=== PATIENT | female | born 1970 | race Hispanic/Latino ===

== ENCOUNTER 2017-04-26 09:52 | Emergency (ER) | payer SELFPAY ==
--- NOTE | 2017-04-26 10:36 | EDPHYS ---
Physician Documentation [facility] Name: Kerry Brush Age: 46 yrs Sex: Female : 1970 Arrival Date: 04/26/2017 Time: 09:55 Bed 7 Private MD: ED Physician Aleksandr Cheng HPI: 04/26 10:07 This 46 yrs old Female presents to ER via Ambulatory with complaints of Sore rn Throat, Ear Pain. 10:07 The patient presents with sore throat. The patient describes throat pain as raw. Onset: rn The symptoms/episode began/occurred yesterday. Severity of symptoms: At their worst the symptoms were mild, in the emergency department the symptoms are unchanged. Modifying factors: The symptoms are alleviated by nothing, the symptoms are aggravated by swallowing. 10:15 The patient has experienced similar episodes in the past. Reports had grandchildren rn over this weekend, woke up yesterday with sore throat, bilateral ear pain, congestion, no fever. . 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 - Social history:: Smoking status: Patient/guardian denies using tobacco. - Family history:: not pertinent. - Hospitalizations: : No recent hospitalization is reported. ROS: 10:15 Constitutional: Negative for fever, chills, and weight loss, Eyes: Negative for injury, rn pain, redness, and discharge, ENT: + sore throat Neck: Negative for injury, and swelling, Cardiovascular: Negative for chest pain, palpitations, and edema, Respiratory: Negative for shortness of breath, cough, wheezing, and pleuritic chest pain, Abdomen/GI: Negative for abdominal pain, nausea, vomiting, diarrhea, and constipation, MS/Extremity: Negative for injury and deformity, Skin: Negative for injury, rash, and discoloration, Neuro: Negative for headache, weakness, numbness, tingling, and seizure. Exam: 10:15 Constitutional: This is a well developed, well nourished patient who is awake, alert, rn and in no acute distress. Head/Face: Normocephalic, atraumatic. Eyes: Pupils equal round and reactive to light, extra-ocular motions intact. Lids and lashes normal. Conjunctiva and sclera are non-icteric and not injected. Cornea within normal limits. Periorbital areas with no swelling, redness, or edema. 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 2 in. (157.48 cm); Pain 8/10; 10:40 BP 132 / 81; Pulse 88; Resp 16 S; Pulse Ox 100% on R/A; Pain 8/10; jtb 09:59 Body Mass Index 36.58 (90.72 kg, 157.48 cm) hb MDM: 10:01 Patient medically screened. rn 10:34 Differential diagnosis: group A strep tonsillitis, influenza, laryngitis, pharyngitis, rn tonsillitis, upper respiratory infection, viral syndrome. Data reviewed: vital signs, nurses notes, lab test result(s), and as a result, I will discharge patient. Counseling: I had a detailed discussion with the patient and/or guardian regarding: the historical points, exam findings, and any diagnostic results supporting the discharge/admit diagnosis, lab results, the need for outpatient follow up, to return to the emergency department if symptoms worsen or persist or if there are any questions or concerns that arise at home. Special discussion: I discussed with the patient/guardian in detail that at this point there is no indication for admission to the hospital. It is understood, however, that if the symptoms persist or worsen the patient needs to return immediately for re-evaluation. 04/26 10:06 Order name: Strep rn 04/26 10:06 Order name: Flu rn 04/26 10:33 Order name: Group A Streptococcus Rapid Sc; Complete Time: 10:34 EDMS 04/26 10:33 Order name: Influenza Screen (A ; Complete Time: 10:34 EDMS Administered Medications: No medications were administered Disposition: 04/26/17 10:35 Discharged to Home. Impression: Acute upper respiratory infection, unspecified. - Condition is Stable. - Discharge Instructions: Upper Respiratory Infection, Adult, Viral Infections. - Medication Reconciliation Form, Thank You Letter, Antibiotic Education, Prescription Opioid Use form. - Follow up: Private Physician; When: As needed; Reason: Recheck today's complaints, Re-evaluation by your physician. - Problem is new. - Symptoms have improved. Signatures: Dispatcher [employer] EDAleksandr Otto MD MD rn Baxter, Heather, RN RN hb Bryson, James jtb
--- NOTE | 2017-04-26 10:36 | ER ---
Nurse's Notes [facility] Name: Kerry Brush Age: 46 yrs Sex: Female : 1970 Arrival Date: 04/26/2017 Time: 09:55 Bed 7 Private MD: Diagnosis: Acute upper respiratory infection, unspecified Presentation: 04/26 09:57 Presenting complaint: Patient states: Sore throat and bilateral ear pain x 2 days. hb Denies fever. Transition of care: patient was not received from another setting of care. Onset of symptoms was April 25, 2017. Care prior to arrival: None. 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 - Social history:: Smoking status: Patient/guardian denies using tobacco. - Family history:: not pertinent. - Hospitalizations: : No recent hospitalization is reported. Screenin:05 Abuse screen: Denies threats or abuse. Denies injuries from another. Nutritional jtb screening: No deficits noted. Tuberculosis screening: No symptoms or risk factors identified. Fall Risk None identified. Assessment: 10:05 General: Appears in no apparent distress. uncomfortable, Behavior is calm, cooperative, jtb appropriate for age. Pain: Complains of pain in right ear and left ear and soar throat. Pain does not radiate. Pain currently is 8 out of 10 on a pain scale. at worst was 9 out of 10 on a pain scale. Neuro: Level of Consciousness is awake, alert, obeys commands, Oriented to person, place, time, situation. Cardiovascular: Heart tones S1 S2 present Patient's skin is warm and dry. Respiratory: Airway is patent Respiratory effort is even, unlabored, Respiratory pattern is regular, symmetrical, Breath sounds are clear bilaterally. GI: No signs and/or symptoms were reported involving the gastrointestinal system. Patient currently denies nausea, vomiting. : No signs and/or symptoms were reported regarding the genitourinary system. EENT: Throat is clear is pink. Derm: Skin is intact, Skin is dry, Skin is normal, Skin temperature is warm. Musculoskeletal: No signs and/or symptoms reported regarding the musculoskeletal system. 10:40 Reassessment: Patient appears in no apparent distress at this time. No changes from jtb previously documented assessment. Patient and/or family updated on plan of care and expected duration. Pain level reassessed. Patient is alert, oriented x 3, equal unlabored respirations, skin warm/dry/pink. Provider at the bedside. Vital Signs: 09:59 BP 145 / 81; Pulse 99; Resp 16; Temp 98.9; Pulse Ox 100% on R/A; Weight 90.72 kg; hb Height 5 ft. 2 in. (157.48 cm); Pain 8/10; 10:40 BP 132 / 81; Pulse 88; Resp 16 S; Pulse Ox 100% on R/A; Pain 8/10; jtb 09:59 Body Mass Index 36.58 (90.72 kg, 157.48 cm) hb ED Course: 09:55 Patient arrived in ED. as 09:58 Aleksandr Cheng MD is Attending Physician. rn 09:58 Triage completed. hb 09:59 Arm band placed on right wrist. hb 10:01 Tess Good RN is Primary Nurse. jl7 10:05 Patient has correct armband on for positive identification. Bed in low position. Call jtb light in reach. Side rails up X 1. Pulse ox on. NIBP on. 10:58 No provider procedures requiring assistance completed. Patient did not have IV access jtb during this emergency room visit. Administered Medications: No medications were administered Outcome: 10:35 Discharge ordered by . rn 10:58 Discharged to home ambulatory. jtb 10:58 Condition: stable 10:58 Discharge instructions given to patient, Instructed on discharge instructions, follow up and referral plans. Demonstrated understanding of instructions, follow-up care. 10:59 Patient left the ED. jtb 11:58 Attestation : I agree with everything documented by Warren García, Student Nurse. jl7 Signatures: Sherry Pino as Aleksandr Cheng MD MD rn Baxter, Heather, RN RN Tess Good RN RN jl7 Warren García
[2017-04-26 11:03] VITALS: TEMP 98.9; O2SAT 100
[2017-04-26 11:04] VITALS: BP 132/81
== END 2017-04-26 10:59 | disposition home or self-care (01) ==
LOC: ER 09:52
DX: J06.9 Acute upper respiratory infection, unspecified (principal)
CPT/HCPCS: 87070; 87081; 87804; 99283

== ENCOUNTER 2018-08-02 21:33 | Emergency (ER) | payer SELFPAY ==
[2018-08-02] MEDS ORDERED: HYDROCODONE/CHLORPHEN 5 ML/OSYR ONE (22:35)
--- NOTE | 2018-08-02 23:00 | ER ---
Nurse's Notes [facility] Name: Kerry Brush Age: 48 yrs Sex: Female : 1970 Arrival Date: 08/02/2018 Time: 21:41 Bed 25 [facility] MD: Diagnosis: Cough;Acute laryngitis;Viral sinusitis Presentation: 08/02 21:44 Presenting complaint: Patient states: Sore throat and hoarse voice for 6 days. Care aj prior to arrival: None. 21:44 Acuity: JAVON 4 aj 21:44 Method Of Arrival: Ambulatory aj 22:03 Transition of care: patient was not received from another setting of care. Onset of cc3 symptoms was August 02, 2018. Risk Assessment: Do you want to hurt yourself or someone else? Patient reports no desire to harm self or others. Initial Sepsis Screen: Does the patient meet any 2 criteria? No. Patient's initial sepsis screen is negative. Does the patient have a suspected source of infection? No. Patient's initial sepsis screen is negative. Triage Assessment: 21:44 General: Appears in no apparent distress. comfortable, Behavior is calm, cooperative, aj appropriate for age. Pain: Denies pain. EENT: Reports pain when swallowing. Respiratory: Airway is patent Respiratory effort is even, unlabored, Respiratory pattern is regular, symmetrical. 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 - Ebola Screening: : Patient negative for fever greater than or equal to 101.5 degrees Fahrenheit, and additional compatible Ebola Virus Disease symptoms Patient denies exposure to infectious person Patient denies travel to an Ebola-affected area in the 21 days before illness onset No symptoms or risks identified at this time. - Family history:: not pertinent. - Social history:: Smoking status: Patient/guardian denies using tobacco, never smoked. - Hospitalizations: : No recent hospitalization is reported. Screenin:03 Abuse screen: Denies threats or abuse. Denies injuries from another. Nutritional cc3 screening: No deficits noted. Tuberculosis screening: No symptoms or risk factors identified. Fall Risk Ambulatory Aid- None/Bed Rest/Nurse Assist (0 pts). Gait- Normal/Bed Rest/Wheelchair (0 pts) Mental Status- Oriented to own ability (0 pts). Assessment: 22:03 General: Appears in no apparent distress. comfortable, Behavior is calm, cooperative, cc3 appropriate for age. Pain: Denies pain. Neuro: Level of Consciousness is awake, alert, obeys commands, Oriented to person, place, time, situation, Appropriate for age. Cardiovascular: Denies chest pain, Patient's skin is warm and dry. Respiratory: Airway is patent Respiratory effort is even, unlabored, Respiratory pattern is regular, symmetrical, Breath sounds are clear bilaterally. GI: Abdomen is round non-distended. : No signs and/or symptoms were reported regarding the genitourinary system. EENT: Throat bilaterally with gag reflex present. Derm: Skin is intact, is healthy with good turgor, Skin is pink, warm \T\ dry. normal. Musculoskeletal: Circulation, motion, and sensation intact. Range of motion: intact in all extremities. 23:05 Reassessment: Patient appears in no apparent distress at this time. Patient and/or cc3 family updated on plan of care and expected duration. Pain level reassessed. Patient is alert, oriented x 3, equal unlabored respirations, skin warm/dry/pink. Dr. Cheng discharged the patient home with prescription given. No IV cannula in situ. Patient left ER vitally stable and ambulatory with her family. No valuables left bedside. Patient denies pain at this time. Patient states feeling better. Patient states symptoms have improved. Vital Signs: 21:44 BP 155 / 69; Pulse 99; Resp 16; Temp 98.2; Pulse Ox 98% on R/A; Weight 90.72 kg; Height aj 5 ft. 1 in. (154.94 cm); 22:55 BP 123 / 70; Pulse 91; Resp 18 S; Temp 98.6(O); Pulse Ox 99% on R/A; cc3 21:44 Body Mass Index 37.79 (90.72 kg, 154.94 cm) aj ED Course: 21:41 Patient arrived in ED. es 21:44 Triage completed. aj 21:44 Arm band placed on left wrist. Patient placed in waiting room, Patient notified of wait aj time. 22:03 Bisi Frausto is Primary Nurse. cc3 22:03 Patient has correct armband on for positive identification. Bed in low position. Call cc3 light in reach. Side rails up X 1. Pulse ox on. NIBP on. 22:04 Aleksandr Cheng MD is Attending Physician. rn 23:05 No provider procedures requiring assistance completed. Patient did not have IV access cc3 during this emergency room visit. Administered Medications: 22:25 Drug: Tussionex Pennkinetic ER 5 ml Route: PO; cc3 22:45 Follow up: Response: No adverse reaction cc3 Outcome: 22:59 Discharge ordered by MD. rn 23:05 Discharged to home ambulatory, with family. cc3 23:05 Condition: stable 23:05 Discharge instructions given to patient, Instructed on discharge instructions, follow up and referral plans. medication usage, Demonstrated understanding of instructions, follow-up care, medications, Prescriptions given X 1. 23:10 Patient left the ED. cc3 Signatures: Jane Villegas, RN Esperanza Eckert Roman, MD MD rn Cordel, Charlene cc3
--- NOTE | 2018-08-02 23:00 | EDPHYS ---
Physician Documentation [facility] Name: Kerry Brush Age: 48 yrs Sex: Female : 1970 Arrival Date: 08/02/2018 Time: 21:41 Bed 25 Private MD: ED Physician Aleksandr Cheng HPI: 08/02 22:12 This 48 yrs old Female presents to ER via Ambulatory with complaints of Sore rn Throat. 22:12 The patient presents with sore throat. The patient describes throat pain as dry, raw. rn Onset: The symptoms/episode began/occurred 6 day(s) ago. Severity of symptoms: At their worst the symptoms were mild, in the emergency department the symptoms are unchanged. Modifying factors: The symptoms are alleviated by nothing, the symptoms are aggravated by swallowing, cough. The patient has experienced similar episodes in the past. Reports has chronic "sinus problems", doesn't take daily allergy medication, now having 6 days of sore throat, ear fullness, runny nose, cough with phlegm. No chest pain. Non-smoker. . 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 - Ebola Screening: : Patient negative for fever greater than or equal to 101.5 degrees Fahrenheit, and additional compatible Ebola Virus Disease symptoms Patient denies exposure to infectious person Patient denies travel to an Ebola-affected area in the 21 days before illness onset No symptoms or risks identified at this time. - Family history:: not pertinent. - Social history:: Smoking status: Patient/guardian denies using tobacco, never smoked. - Hospitalizations: : No recent hospitalization is reported. ROS: 22:12 Constitutional: Negative for fever, chills, and weight loss, Eyes: Negative for injury, rn pain, redness, and discharge, ENT: + nasal and ear congestion, + sore throat Neck: Negative for injury, pain, and swelling, Cardiovascular: Negative for chest pain, palpitations, and edema, Respiratory: + cough Abdomen/GI: Negative for abdominal pain, nausea, vomiting, diarrhea, and constipation, MS/Extremity: Negative for injury and deformity, Skin: Negative for injury, rash, and discoloration, Neuro: Negative for headache, weakness, numbness, tingling, and seizure. Exam: 22:12 Constitutional: This is a well developed, well nourished patient who is awake, alert, rn and in no acute distress. Head/Face: Normocephalic, atraumatic. Eyes: Pupils equal round and reactive to light, extra-ocular motions intact. Lids and lashes normal. Conjunctiva and sclera are non-icteric and not injected. Cornea within normal limits. Periorbital areas with no swelling, redness, or edema. ENT: No oral swelling, no stridor, uvula midline Neck: Trachea midline, + mild tender anterior cervical LAD Respiratory: No increased work of breathing, no retractions or nasal flaring. Speaking full sentences Skin: Warm, dry with normal turgor. Normal color with no rashes, no lesions, and no evidence of cellulitis. MS/ Extremity: Pulses equal, no cyanosis. Neurovascular intact. Full, normal range of motion. Equal circumference. Neuro: Awake and alert, GCS 15, oriented to person, place, time, and situation. Cranial nerves II-XII grossly intact. Motor strength 5/5 in all extremities. Sensory grossly intact. Cerebellar exam normal. Normal gait. Vital Signs: 21:44 BP 155 / 69; Pulse 99; Resp 16; Temp 98.2; Pulse Ox 98% on R/A; Weight 90.72 kg; Height aj 5 ft. 1 in. (154.94 cm); 22:55 BP 123 / 70; Pulse 91; Resp 18 S; Temp 98.6(O); Pulse Ox 99% on R/A; cc3 21:44 Body Mass Index 37.79 (90.72 kg, 154.94 cm) aj MDM: 22:04 Patient medically screened. rn 22:57 Differential diagnosis: group A strep tonsillitis, pharyngitis, uvulitis, viral rn syndrome. Data reviewed: vital signs, nurses notes, lab test result(s), and as a result, I will discharge patient. Counseling: I had a detailed discussion with the patient and/or guardian regarding: the historical points, exam findings, and any diagnostic results supporting the discharge/admit diagnosis, lab results, the need for outpatient follow up, to return to the emergency department if symptoms worsen or persist or if there are any questions or concerns that arise at home. Special discussion: I discussed with the patient/guardian in detail that at this point there is no indication for admission to the hospital. It is understood, however, that if the symptoms persist or worsen the patient needs to return immediately for re-evaluation. ED course: Most likely viral syndrome, strep neg, will dc with cough medication, and recommend pcp f/u if continues or worsens.. 08/02 22:38 Order name: Throat Culture EDMT 08/02 22:43 Order name: Group A Streptococcus Rapid Sc; Complete Time: 22:57 EDMT Administered Medications: 22:25 Drug: Tussionex Pennkinetic ER 5 ml Route: PO; cc3 22:45 Follow up: Response: No adverse reaction cc3 Disposition: 08/02/18 22:59 Discharged to Home. Impression: Cough, Acute laryngitis, Viral sinusitis. - Condition is Stable. - Discharge Instructions: Laryngitis, Viral Respiratory Infection, Cough, Adult. - Prescriptions for Guaifenesin AC 10- 100 mg/5 mL Oral Liquid - take 10 milliliter by ORAL route every 4 hours As needed; 240 milliliter. - Medication Reconciliation Form, Thank You Letter, Antibiotic Education, Prescription Opioid Use form. - Follow up: Private Physician; When: As needed; Reason: Recheck today's complaints, Re-evaluation by your physician. - Problem is an ongoing problem. - Symptoms have improved. Signatures: Dispatcher [employer] [facility] Jane Villegas RN Aleksandr Merlos MD MD rn Cordel, Charlene cc3 Corrections: (The following items were deleted from the chart) 22:56 22:43 Group A Streptococcus Rapid [id number] ordered. [facility] 23:00 22:59 08/02/2018 22:59 Discharged to Home. Impression: Cough; Acute laryngitis. rn Condition is Stable. Forms are Medication Reconciliation Form, Thank You Letter, Antibiotic Education, Prescription Opioid Use. Follow up: Private Physician; When: As needed; Reason: Recheck today's complaints, Re-evaluation by your physician. Problem is an ongoing problem. Symptoms have improved. rn 23:10 23:00 08/02/2018 22:59 Discharged to Home. Impression: Cough; Acute laryngitis; Viral cc3 sinusitis. Condition is Stable. Forms are Medication Reconciliation Form, Thank You Letter, Antibiotic Education, Prescription Opioid Use. Follow up: Private Physician; When: As needed; Reason: Recheck today's complaints, Re-evaluation by your physician. Problem is an ongoing problem. Symptoms have improved. rn
[2018-08-03 01:52] VITALS: BP 123/70; TEMP 98.6; O2SAT 99
== END 2018-08-02 23:10 | disposition home or self-care (01) ==
LOC: ER 21:33
DX: J04.0 Acute laryngitis (principal); J32.8 Other chronic sinusitis; B97.89 Other viral agents as the cause of diseases classified elsewhere; R05 Cough
CPT/HCPCS: 87070; 87081; 99283

== ENCOUNTER 2019-02-27 17:09 | Emergency (ER) | payer SELFPAY ==
--- NOTE | 2019-02-27 18:04 | EDPHYS ---
Physician Documentation [facility] Name: Kerry Brush Age: 48 yrs Sex: Female : 1970 Arrival Date: 02/27/2019 Time: 17:12 Bed 17 Private MD: ED Physician Aleksandr Cheng HPI: 02/27 19:30 This 48 yrs old Female presents to ER via Ambulatory with complaints of snw Breathing Difficulty, Fever, Sore Throat, Headache. 19:30 The patient or guardian reports cough, flu symptoms, arthralgias, low-grade fever, snw myalgias, no appetite, hoarse voice. Onset: The symptoms/episode began/occurred suddenly, last night. Modifying factors: The symptoms are alleviated by nothing. Associated signs and symptoms: Pertinent positives: fever, sore throat, cough. Severity of symptoms: At their worst the symptoms were moderate in the emergency department the symptoms are unchanged. The patient has not experienced similar symptoms in the past, but family has similar symptoms, father. The patient has not recently seen a physician. 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 - Social history:: Smoking status: Patient denies any tobacco usage or history of. - Ebola Screening: : Patient negative for fever greater than or equal to 101.5 degrees Fahrenheit, and additional compatible Ebola Virus Disease symptoms Patient denies exposure to infectious person Patient denies travel to an Ebola-affected area in the 21 days before illness onset No symptoms or risks identified at this time. ROS: 19:29 Eyes: Negative for injury, pain, redness, and discharge, ENT: Negative for injury, snw pain, and discharge, Neck: Negative for injury, pain, and swelling, Cardiovascular: Negative for chest pain, palpitations, and edema. 19:29 Abdomen/GI: Negative for abdominal pain, nausea, vomiting, diarrhea, and constipation, Back: Negative for injury and pain, : Negative for injury, bleeding, discharge, and swelling, MS/Extremity: Negative for injury and deformity, Skin: Negative for injury, rash, and discoloration, Neuro: Negative for headache, weakness, numbness, tingling, and seizure. 19:29 Constitutional: Positive for body aches, chills, fatigue, fever, malaise. 19:29 Respiratory: Positive for cough, with no reported sputum. Exam: 19:28 Head/Face: Normocephalic, atraumatic. Eyes: Pupils equal round and reactive to light, snw extra-ocular motions intact. Lids and lashes normal. Conjunctiva and sclera are non-icteric and not injected. Cornea within normal limits. Periorbital areas with no swelling, redness, or edema. Neck: Trachea midline, no thyromegaly or masses palpated, and no cervical lymphadenopathy. Supple, full range of motion without nuchal rigidity, or vertebral point tenderness. No Meningismus. Chest/axilla: Normal chest wall appearance and motion. Nontender with no deformity. No lesions are appreciated. Cardiovascular: Regular rate and rhythm with a normal S1 and S2. No gallops, murmurs, or rubs. Normal PMI, no JVD. No pulse deficits. Abdomen/GI: Soft, non-tender, with normal bowel sounds. No distension or tympany. No guarding or rebound. No evidence of tenderness throughout. Back: No spinal tenderness. No costovertebral tenderness. Full range of motion. Skin: Warm, dry with normal turgor. Normal color with no rashes, no lesions, and no evidence of cellulitis. MS/ Extremity: Pulses equal, no cyanosis. Neurovascular intact. Full, normal range of motion. Neuro: Awake and alert, GCS 15, oriented to person, place, time, and situation. Cranial nerves II-XII grossly intact. Motor strength 5/5 in all extremities. Sensory grossly intact. Cerebellar exam normal. Normal gait. Psych: Awake, alert, with orientation to person, place and time. Behavior, mood, and affect are within normal limits. 19:28 Constitutional: The patient appears alert, awake, frail, uncomfortable. 19:28 Respiratory: the patient does not display signs of respiratory distress, Respirations: normal, Breath sounds: + upper airway congestion. bronchitic cough. Vital Signs: 17:27 BP 135 / 82; Pulse 88; Resp 16; Temp 99; Pulse Ox 96% ; Weight 90.72 kg; Height 5 ft. 1 sv in. (154.94 cm); 18:30 BP 131 / 76; Pulse 81; Resp 17 S; Pulse Ox 96% on R/A; ca1 17:27 Body Mass Index 37.79 (90.72 kg, 154.94 cm) sv MDM: 17:43 Patient medically screened. snw 19:27 Data reviewed: vital signs, nurses notes. Data interpreted: Pulse oximetry: on room air snw is 96 %. Interpretation: acceptable. Counseling: I had a detailed discussion with the patient and/or guardian regarding: the historical points, exam findings, and any diagnostic results supporting the discharge/admit diagnosis, the need for outpatient follow up, to return to the emergency department if symptoms worsen or persist or if there are any questions or concerns that arise at home. Special discussion: I have referred the patient to see his PCP for further evaluation of high blood pressure. Based on the history and exam findings, there is no indication for further emergent testing or inpatient evaluation. I discussed with the patient/guardian the need to see the primary care provider for further evaluation of the symptoms. Administered Medications: 18:25 Drug: Tussionex Pennkinetic ER 5 ml Route: PO; sg 18:29 Follow up: Response: Medication administered at discharge. ca1 18:25 Drug: Phenergan 25 mg Route: PO; sg 18:29 Follow up: Response: Medication administered at discharge. ca1 Disposition: 02/28 16:32 Co-signature as Attending Physician, Aleksandr Cheng MD. rn Disposition: 02/27/19 18:04 Discharged to Home. Impression: Influenza due to unidentified influenza virus. - Condition is Stable. - Discharge Instructions: Fever, Adult, Influenza, Adult, Cough, Adult, Rehydration, Adult. - Prescriptions for promethazine 25 mg Oral Tablet - take 1 tablet by ORAL route every 6 hours As needed; 20 tablet. Tamiflu 75 mg Oral Capsule - take 1 tablet by ORAL route every 12 hours for 5 days; 10 tablet. - Work release form, Medication Reconciliation Form, Thank You Letter, Antibiotic Education, Prescription Opioid Use form. - Follow up: Private Physician; When: 2 - 3 days; Reason: Recheck today's complaints, Continuance of care, Re-evaluation by your physician. Follow up: Emergency Department; When: As needed; Reason: Worsening of condition. Signatures: Lenora Post RN RN sv Hubert Marte RN RN sg Deborah Cano, EXPORT COORDINATOR-C EXPORT COORDINATOR-Csnw Aleksandr Cheng MD MD rn Acob, Diann RN RN ca1 Corrections: (The following items were deleted from the chart) 02/27 18:38 18:04 02/27/2019 18:04 Discharged to Home. Impression: Influenza due to unidentified ca1 influenza virus. Condition is Stable. Forms are Medication Reconciliation Form, Thank You Letter, Antibiotic Education, Prescription Opioid Use. Follow up: Private Physician; When: 2 - 3 days; Reason: Recheck today's complaints, Continuance of care, Re-evaluation by your physician. Follow up: Emergency Department; When: As needed; Reason: Worsening of condition. snw
--- NOTE | 2019-02-27 18:04 | ER ---
Nurse's Notes [facility] Name: Kerry Brush Age: 48 yrs Sex: Female : 1970 Arrival Date: 02/27/2019 Time: 17:12 Bed 17 Private MD: Diagnosis: Influenza due to unidentified influenza virus Presentation: 02/27 17:25 Presenting complaint: Patient states: sore throat started Tuesday and then started sv having dyspnea, fever Tmax 100, body aches started the next day. Transition of care: patient was not received from another setting of care. Onset of symptoms was February 25, 2019. Care prior to arrival: Medication(s) given: Theraflu and Ibuprofen taken this morning around 0830. 17:25 Method Of Arrival: Ambulatory sv 17:25 Acuity: JAVON 3 sv 17:40 Initial Sepsis Screen: Does the patient meet any 2 criteria? Yes Does the patient have ca1 a suspected source of infection? No. Patient's initial sepsis screen is negative. 17:40 Risk Assessment: Do you want to hurt yourself or someone else? Patient reports no ca1 desire to harm self or others. Triage Assessment: 18:37 Respiratory: Reports Onset: The symptoms/episode began/occurred the patient has mild ca1 shortness of breath. 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 - Social history:: Smoking status: Patient denies any tobacco usage or history of. - Ebola Screening: : Patient negative for fever greater than or equal to 101.5 degrees Fahrenheit, and additional compatible Ebola Virus Disease symptoms Patient denies exposure to infectious person Patient denies travel to an Ebola-affected area in the 21 days before illness onset No symptoms or risks identified at this time. Screenin:40 Abuse screen: Denies threats or abuse. Denies injuries from another. Nutritional ca1 screening: No deficits noted. Tuberculosis screening: No symptoms or risk factors identified. 17:40 Fall Risk None identified. ca1 Assessment: 17:40 General: Appears in no apparent distress. comfortable, Behavior is calm, cooperative, ca1 appropriate for age. Pain: Complains of pain in throat Pain began 2-3 days ago. Neuro: Level of Consciousness is awake, alert, obeys commands, Oriented to person, place, time, situation, Appropriate for age. Cardiovascular: Heart tones S1 S2 present Capillary refill < 3 seconds Patient's skin is warm and dry. Rhythm is regular. Respiratory: Reports cough that is Airway is compromised Respiratory effort is even, unlabored, Respiratory pattern is regular, symmetrical, Breath sounds are clear bilaterally. GI: Abdomen is round non-distended, Bowel sounds present X 4 quads. Abd is soft and non tender X 4 quads. : No deficits noted. No signs and/or symptoms were reported regarding the genitourinary system. EENT: Reports nasal congestion nasal discharge that is watery. Derm: Skin is intact, is healthy with good turgor, Skin is pink, warm \T\ dry. Musculoskeletal: Circulation, motion, and sensation intact. Capillary refill < 3 seconds. 18:30 Reassessment: Patient appears in no apparent distress at this time. Patient is alert, ca1 oriented x 3, equal unlabored respirations, skin warm/dry/pink. Vital Signs: 17:27 BP 135 / 82; Pulse 88; Resp 16; Temp 99; Pulse Ox 96% ; Weight 90.72 kg; Height 5 ft. 1 sv in. (154.94 cm); 18:30 BP 131 / 76; Pulse 81; Resp 17 S; Pulse Ox 96% on R/A; ca1 17:27 Body Mass Index 37.79 (90.72 kg, 154.94 cm) sv ED Course: 17:12 Patient arrived in ED. mr 17:25 Arm band placed on. sv 17:27 Triage completed. sv 17:28 Hubert Marte, RN is Primary Nurse. sg 17:34 Deborah [facility]C [facility]. snw 17:34 Aleksandr Cheng MD is Attending Physician. snw 17:40 Patient has correct armband on for positive identification. Bed in low position. Call ca1 light in reach. Side rails up X 1. Pulse ox on. NIBP on. 18:31 No provider procedures requiring assistance completed. Patient did not have IV access ca1 during this emergency room visit. Administered Medications: 18:25 Drug: Tussionex Pennkinetic ER 5 ml Route: PO; sg 18:29 Follow up: Response: Medication administered at discharge. ca1 18:25 Drug: Phenergan 25 mg Route: PO; sg 18:29 Follow up: Response: Medication administered at discharge. ca1 Outcome: 18:04 Discharge ordered by . steve 18:31 Discharged to home ambulatory, with family. ca1 18:31 Condition: stable 18:31 Discharge instructions given to patient, Instructed on discharge instructions, follow up and referral plans. medication usage, Demonstrated understanding of instructions, follow-up care, medications, Prescriptions given X 2. 18:38 Patient left the ED. ca1 Signatures: Lneora Post, RN RN Hubert Rivas RN RN sg Deborah Cano, ASSEMBLER PRODUCT-C ASSEMBLER PRODUCT-Csnw Jason Diann Oden RN RN ca1
[2019-02-27] MEDS ORDERED: HYDROCODONE/CHLORPHEN 5 ML/OSYR ONE (18:23)
[2019-02-27] MEDS ORDERED: PROMETHAZINE 25 MG TABLET ONE (18:23)
[2019-02-28 04:23] VITALS: BP 135/82; TEMP 99; O2SAT 96
== END 2019-02-27 18:38 | disposition home or self-care (01) ==
LOC: ER 17:09
DX: J11.89 Influenza due to unidentified influenza virus with other manifestations (principal)
CPT/HCPCS: 99283; Q0169

== ENCOUNTER 2020-03-10 11:34 | Observation (INO) | payer BC, SELFPAY ==
--- NOTE | 2020-03-10 13:27 | RAD REPORT ---
EXAM DESCRIPTION: RADChest Pa And Lat (2 Views)03/10/2020 1:21 pm CLINICAL HISTORY: Cough COMPARISON: None FINDINGS: Moderate bilateral pulmonary opacities. . The heart is normal size IMPRESSION: Moderate bilateral pulmonary opacities likely pneumonia
[2020-03-10 16:55] LABS: Absolute Lymphocytes (CBC) 1.4 K/uL (0.7-4.9); Basophils % 0.2 % (0-1.3); Hematocrit 29.8 % (36.0-45.0); Lymphocytes % 21.8 % (15.3-44.8); MPV 7.8 fL (7.6-11.3); RBC Red Blood Cell Count 3.79 M/uL (3.86-4.86)
[2020-03-10 16:58] LABS: Protime INR 1.08
[2020-03-10] MEDS ORDERED: NA CHLORIDE 0.9% 50 ML ONE (17:04)
[2020-03-10] MEDS ORDERED: dexAMETHasone 10 MG/ML VIAL ONE (17:04)
[2020-03-10 17:20] LABS: ALT/SGPT 91 U/L (12-78); AST/SGOT 65 U/L (15-37); Albumin 3.5 g/dL (3.4-5.0); Alkaline Phosphatase 118 U/L (45-117); BUN Blood Urea Nitrogen 9 mg/dL (7-18); Bicarbonate 26 mmol/L (21-32); Bilirubin Direct 0.1 mg/dL (0-0.2); Bilirubin Total 0.3 mg/dL (0.2-1.0); Glucose Level 91 mg/dL (74-106); Lipase 108 U/L (73-393); Potassium 3.2 mmol/L (3.5-5.1); Protein, Total 8.6 g/dL (6.4-8.2); Sodium Level 135 mmol/L (136-145); Troponin (Emerg Dept Use Only) < 0.02 ng/mL (0.0-0.045)
--- NOTE | 2020-03-10 18:38 | RAD REPORT ---
EXAM DESCRIPTION: CT - Chest For Pe Angio - 03/10/2020 6:03 pm CLINICAL HISTORY: SOB, COVID positive March 05, shortness of breath, chest pain COMPARISON: Chest Pa And Lat (2 Views) dated 03/10/2020 TECHNIQUE: Dynamically enhanced 3 mm thick images of the chest were obtained during administration o f approximately 150mL Isovue 370 IV contrast. Coronal and oblique MIP reconstruction images were gene rated and reviewed. Exam utilizes a protocol to evaluate the pulmonary arterial tree. All CT scans are performed using dose optimization technique as appropriate and may include automated exposure control or mA/KV adjustment according to patient size. FINDINGS: No pulmonary emboli are identified. The aorta as imaged shows no acute or suspicious finding. No pericardial thickening or effusion. Peripheral ground-glass opacification present in the lung pritchett with interstitial thickening. No end obronchial lesion. No mass or cavitation seen. No pleural effusion or pleural thickening. No mediastinal or hilar suspicious masses. No chest wall masses or abnormal axillary lymphadenopathy. IMPRESSION: No pulmonary emboli identified. Mild to moderate bilateral COVID-19 pneumonia.
--- NOTE | 2020-03-10 18:54 | EDPHYS ---
Physician Documentation [facility] Name: Kerry Brush Age: 49 yrs Sex: Female : 1970 Arrival Date: 03/10/2020 Time: 11:34 Bed 15 Private MD: ED Physician Lianne Martinez HPI: 03/10 19:01 This 49 yrs old Female presents to ER via Ambulatory with complaints of Cough, kb Shortness Of Breath, COVID+. 19:01 The patient or guardian reports cough, difficulty breathing, flu symptoms, low-grade kb fever, myalgias. Onset: The symptoms/episode began/occurred 7 day(s) ago. Severity of symptoms: At their worst the symptoms were moderate, in the emergency department the symptoms are unchanged. Modifying factors: The symptoms are alleviated by nothing, the symptoms are aggravated by exertion. Associated signs and symptoms: The patient has no apparent associated signs or symptoms. The patient has not experienced similar symptoms in the past. The patient has not recently seen a physician. Pt reports she was diagnosed with COVID last week. Was given antibiotics and an inhaler with no relief. Went back to her PCP today and was sent here for evaluation due to breathing. 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 - Social history:: Smoking status: Patient denies any tobacco usage or history of. ROS: 18:54 Constitutional: Negative for fever, chills, and weight loss, Cardiovascular: Negative kb for chest pain, palpitations, and edema, Respiratory: Negative for shortness of breath, cough, wheezing, and pleuritic chest pain, Abdomen/GI: Negative for abdominal pain, nausea, vomiting, diarrhea, and constipation, MS/Extremity: Negative for injury and deformity, Skin: Negative for injury, rash, and discoloration, Neuro: Negative for headache, weakness, numbness, tingling, and seizure. Exam: 19:00 Constitutional: This is a well developed, well nourished patient who is awake, alert, kb and in no acute distress. Head/Face: Normocephalic, atraumatic. Chest/axilla: Normal chest wall appearance and motion. Nontender with no deformity. No lesions are appreciated. Cardiovascular: Regular rate and rhythm with a normal S1 and S2. No gallops, murmurs, or rubs. Normal PMI, no JVD. No pulse deficits. Respiratory: Lungs have equal breath sounds bilaterally, clear to auscultation and percussion. No rales, rhonchi or wheezes noted. No increased work of breathing, no retractions or nasal flaring. Abdomen/GI: Soft, non-tender, with normal bowel sounds. No distension or tympany. No guarding or rebound. No evidence of tenderness throughout. Skin: Warm, dry with normal turgor. Normal color with no rashes, no lesions, and no evidence of cellulitis. MS/ Extremity: Pulses equal, no cyanosis. Neurovascular intact. Full, normal range of motion. Neuro: Awake and alert, GCS 15, oriented to person, place, time, and situation. Cranial nerves II-XII grossly intact. Motor strength 5/5 in all extremities. Sensory grossly intact. Cerebellar exam normal. Normal gait. Vital Signs: 11:55 BP 126 / 62; Pulse 94; Resp 18 S; Temp 97.2(TE); Pulse Ox 96% on R/A; Weight 107.95 kg ca1 (R); Height 5 ft. 1 in. (154.94 cm) (R); Pain 0/10; 17:20 BP 116 / 68; Pulse 88; Resp 20; Pulse Ox 93% on R/A; zb 18:00 BP 136 / 57; Pulse 94; Resp 20; Pulse Ox 93% on R/A; zb 18:21 Pulse 99; Resp 21; Pulse Ox 89% on R/A; zb 18:25 Pulse 94; Resp 20; Pulse Ox 96% on 2 lpm NC; zb 19:30 BP 144 / 66; Pulse 91; Resp 20; Pulse Ox 96% on 2 lpm NC; zb 11:55 Body Mass Index 44.97 (107.95 kg, 154.94 cm) ca1 MDM: 15:25 Patient medically screened. kb 18:59 Data reviewed: vital signs, nurses notes. Data interpreted: Pulse oximetry: on room air kb is 94 %. Interpretation: acceptable. Counseling: I had a detailed discussion with the patient and/or guardian regarding: the historical points, exam findings, and any diagnostic results supporting the discharge/admit diagnosis, lab results, radiology results, the need for further work-up and treatment in the hospital. ED course: Pt's oxygen saturation went to 86% with exertion, breathing mildly labored. Oxygen came up shortly after resting, but pt is concerned about going home because she lives upstairs and alone. . 03/10 15:26 Order name: Blood Culture Adult (2) kb 03/10 15:26 Order name: BMP kb 03/10 15:26 Order name: C-Reactive Protein kb 03/10 15:26 Order name: CBC with Diff kb 03/10 15:26 Order name: D-Dimer kb 03/10 15:26 Order name: Ferritin kb 03/10 15:26 Order name: Lactate kb 03/10 15:26 Order name: LFT's kb 03/10 15:26 Order name: Lipase kb 03/10 15:26 Order name: Procalcitonin kb 03/10 15:26 Order name: PT-INR kb 03/10 15:26 Order name: Ptt, Activated kb 03/10 15:26 Order name: Troponin (emerg Dept Use Only) kb 03/10 16:57 Order name: CBC with Automated Diff; Complete Time: 17:05 EDMS 03/10 17:03 Order name: Lactate; Complete Time: 17:05 EDMS 03/10 17:04 Order name: Protime (+INR); Complete Time: 17:05 EDMS 03/10 17:04 Order name: PTT, Activated Partial Thromb; Complete Time: 17:05 EDMS 03/10 17:04 Order name: D-Dimer; Complete Time: 17:05 EDMS 03/10 17:21 Order name: Basic Metabolic Panel; Complete Time: 17:26 EDMS 03/10 17:21 Order name: Liver (Hepatic) Function; Complete Time: 17: EDMS 03/10 17:21 Order name: Troponin (Emerg Dept Use Only); Complete Time: 17:26 EDMS 03/10 17:21 Order name: C-Reactive Protein; Complete Time: 17:26 EDMS 03/10 17:21 Order name: Lipase; Complete Time: 17: EDMS 03/10 17:21 Order name: Ferritin; Complete Time: 17:26 EDMS 03/10 17:30 Order name: Procalcitonin; Complete Time: 17:35 EDMS 03/10 17:30 Order name: Blood Culture EDMS 03/11 06:27 Order name: CBC with Automated Diff; Complete Time: 14:59 EDMS 03/11 06:44 Order name: Comprehensive Metabolic Panel; Complete Time: 14:59 EDMS 03/11 06:44 Order name: C-Reactive Protein; Complete Time: 14:59 EDMS 03/11 06:44 Order name: Transferrin Sat/Iron Binding; Complete Time: 14:59 EDMS 03/10 11:59 Order name: Chest Pa And Lat (2 Views) XRAY; Complete Time: 15:02 ca1 03/10 15:26 Order name: IV Start; Complete Time: 16:46 kb 03/10 15:26 Order name: EKG; Complete Time: 17:17 kb 03/10 15:26 Order name: Cardiac monitoring; Complete Time: 16:19 kb 03/10 15:26 Order name: Droplet/Contact Precautions; Complete Time: 16:19 kb 03/10 15:26 Order name: EKG - Nurse/Tech; Complete Time: 16:19 kb 03/10 15:26 Order name: Labs collected and sent; Complete Time: 16:19 kb 03/10 15:26 Order name: O2 Per Protocol; Complete Time: 16:19 kb 03/10 15:26 Order name: O2 Sat Monitoring; Complete Time: 16:19 kb 03/10 17:06 Order name: CT Chest For PE Angio kb 03/10 18:39 Order name: CT; Complete Time: 18:47 EDMS 03/11 06:44 Order name: Ferritin; Complete Time: 14:59 EDMS 03/11 16:44 Order name: Blood Culture EDMS Administered Medications: 16:54 Drug: Decadron - Dexamethasone 10 mg Route: IVP; Site: right antecubital; zb 18:55 Follow up: Response: No adverse reaction zb Disposition: 03/10/20 18:52 Hospitalization ordered by Serge Patel for Observation. Preliminary diagnosis are Coronavirus infection, unspecified, Viral pneumonia, unspecified. - Bed requested for [facility] ER HOLD. - Status is Observation. em - Condition is Stable. - Problem is new. - Symptoms are unchanged. Addendum: 03/17/2020 19:16 Co-signature as Attending Physician, Lianne Martinez MD. m a2 Signatures: Dispatcher [employer] Raeann Rivero, FRANSISCO-Benny SCRAP KETTLE TENDER-Bere Moran, RN RN dw Danny Newman, RN RN em Lianne Martinez MD MD ma2 Diann Douglas, RN RN ca1 Gem Cisneros RN RN zb Corrections: (The following items were deleted from the chart) 03/10 21:43 18:52 Hospitalization Ordered by Serge Patel DO for Observation. Preliminary dw diagnosis is Coronavirus infection, unspecified; Viral pneumonia, unspecified. Bed requested for Telemetry/MedSurg (observation). Status is Observation. Condition is Stable. Problem is new. Symptoms are unchanged. kb 03/11 19:29 03/10 21:43 03/10/2020 18:52 Hospitalization Ordered by Serge Patel DO for em Observation. Preliminary diagnosis is Coronavirus infection, unspecified; Viral pneumonia, unspecified. Bed requested for [facility] ER HOLD. Status is Observation. Condition is Stable. Problem is new. Symptoms are unchanged. dw
--- NOTE | 2020-03-10 18:54 | ER ---
Nurse's Notes [facility] Name: Kerry Brush Age: 49 yrs Sex: Female : 1970 Arrival Date: 03/10/2020 Time: 11:34 Bed 15 Private MD: Diagnosis: Coronavirus infection, unspecified;Viral pneumonia, unspecified Presentation: 03/10 11:55 Chief complaint: Patient states: Covid+ 03/05/2020. S/S started 03/03/2020. Cough ca1 increasing, SOB getting worse. Denies chest pain. Coronavirus screen: Client reports previous positive COVID test result. Date of collection: March 05, 2020. Ebola Screen: Patient negative for fever greater than or equal to 101.5 degrees Fahrenheit, and additional compatible Ebola Virus Disease symptoms Patient denies exposure to infectious person. Patient denies travel to an Ebola-affected area in the 21 days before illness onset. No symptoms or risks identified at this time. Initial Sepsis Screen: Does the patient meet any 2 criteria? No. Patient's initial sepsis screen is negative. Does the patient have a suspected source of infection? No. Patient's initial sepsis screen is negative. Risk Assessment: Do you want to hurt yourself or someone else? Patient reports no desire to harm self or others. Onset of symptoms was March 03, 2020. 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 - Social history:: Smoking status: Patient denies any tobacco usage or history of. Screenin:57 Abuse screen: Denies threats or abuse. Denies injuries from another. Nutritional zb screening: No deficits noted. Tuberculosis screening: No symptoms or risk factors identified. Fall Risk None identified. Assessment: 15:32 Reassessment: pt ambulated from lobby to ER room 27, O2 sat dropped to 86% on RA, up to iw 94% at rest, now up to 95% on RA. 16:20 General: Appears in no apparent distress. uncomfortable, Behavior is calm, cooperative, zb appropriate for age. Pain: Complains of pain in chest Pain does not radiate. Pain currently is 5 out of 10 on a pain scale. Quality of pain is described as dull, heavy, Pain began couple days ago Is continuous. Neuro: Level of Consciousness is awake, alert, obeys commands, Oriented to person, place, time, situation. Cardiovascular: Heart tones S1 S2 present Murmur present Capillary refill < 3 seconds in bilateral fingers Pulses are all present. Respiratory: Reports cough that is non-productive, persistent pain with cough Airway is patent Respiratory effort is even, unlabored, Respiratory pattern is regular, Breath sounds are coarse bilaterally. Breath sounds are diminished bilaterally. the patient has moderate shortness of breath. GI: Abdomen is round non-distended. : No signs and/or symptoms were reported regarding the genitourinary system. EENT: No signs and/or symptoms were reported regarding the EENT system. Derm: Skin is intact, is healthy with good turgor, Skin is dry, Skin is normal, Skin temperature is warm. 17:19 Reassessment: Patient appears in no apparent distress at this time. Patient and/or zb family updated on plan of care and expected duration. Pain level reassessed. pt waiting on results. continues to cough. no changes a this time. 18:19 Reassessment: Patient and/or family updated on plan of care and expected duration. Pain zb level reassessed. pt in bed. states she feels the same. waiting on results from radiology. 18:23 Reassessment: pt placed on 2L of oxygen NC. de-Sat to 87-88. now on at 96 on 2L. zb 19:30 Reassessment: Patient appears in no apparent distress at this time. Patient and/or zb family updated on plan of care and expected duration. Pain level reassessed. no changes at this time. hospitalist has spoken to patient. 20:30 Reassessment: Patient appears in no apparent distress at this time. Patient and/or zb family updated on plan of care and expected duration. Pain level reassessed. Patient is alert, oriented x 3, equal unlabored respirations, skin warm/dry/pink. no changes at this time. pt awaiting a room. 21:28 Reassessment: patient given food, per MD. zb 21:30 Reassessment: report given to syd CARDONA. zb Vital Signs: 11:55 BP 126 / 62; Pulse 94; Resp 18 S; Temp 97.2(TE); Pulse Ox 96% on R/A; Weight 107.95 kg ca1 (R); Height 5 ft. 1 in. (154.94 cm) (R); Pain 0/10; 17:20 BP 116 / 68; Pulse 88; Resp 20; Pulse Ox 93% on R/A; zb 18:00 BP 136 / 57; Pulse 94; Resp 20; Pulse Ox 93% on R/A; zb 18:21 Pulse 99; Resp 21; Pulse Ox 89% on R/A; zb 18:25 Pulse 94; Resp 20; Pulse Ox 96% on 2 lpm NC; zb 19:30 BP 144 / 66; Pulse 91; Resp 20; Pulse Ox 96% on 2 lpm NC; zb 11:55 Body Mass Index 44.97 (107.95 kg, 154.94 cm) ca1 ED Course: 11:34 Patient arrived in ED. ag5 11:58 Triage completed. ca1 11:58 Arm band placed on right wrist. ca1 13:21 Chest Pa And Lat (2 Views) XRAY In Process Unspecified. EDMS 15:24 Russel Lockwood PA is PHCP. cp 15:24 Lianne Martinez MD is Attending Physician. cp 15:24 Raeann Miller FNP-C is PHCP. kb 15:24 Lianne Martinez MD is Attending Physician. kb 15:53 Gem Cisneros, DULCE is Primary Nurse. zb 16:57 Patient has correct armband on for positive identification. telemetry monitor on. Pulse zb ox on. NIBP on. Door closed. Noise minimized. PO fluids given. 16:58 Inserted saline lock: 20 gauge in right antecubital area, using aseptic technique. zb Patient maintains SpO2 saturation greater than 95% on room air. 18:52 Serge Patel DO is Hospitalizing Provider. kb Administered Medications: 16:54 Drug: Decadron - Dexamethasone 10 mg Route: IVP; Site: right antecubital; zb 18:55 Follow up: Response: No adverse reaction zb Outcome: 18:52 Decision to Hospitalize by Provider. kb 02/02 19:29 Patient left the ED. em Signatures: Dispatcher [employer] Raeann Rivero, FRANSISCO-Benny COURTESY DRIVER-Danny Snell, RN RN em Estela Cerna, DULCE RN Russel Eli PA PA cp Acob, Cheryl, RN RN ca1 Annmarie Brad ag5 Gem Cisneros RN RN zb Corrections: (The following items were deleted from the chart) 03/10 11:58 11:55 BP 126 / 62; Pulse 94bpm; Resp 16bpm; Spontaneous; Pulse Ox 96% RA; Temp 97.2F ca1 Temporal; 107.95 kg Reported; Height 5 ft. 1 in. Reported; BMI: 44.9; Pain 0/10; ca1 15:34 15:32 Reassessment: pt ambulated from lobby to ER room 27, O2 sat dropped to 86% on RA, iw up to 94% at rest, now up to 95% iw
--- NOTE | 2020-03-10 19:38 | P.HP ---
Certification for Inpatient Patient admitted to: Observation With expected LOS: <2 Midnights Patient will require the following post-hospital care: None Practitioner: I am a practitioner with admitting privileges, knowledge of patient current condition, hospital course, and medical plan of care. Services: Services provided to patient in accordance with Admission requirements found in Title 42 Section 412.3 of the Code of Federal Regulations <Ollie Scanlon - Last Filed: 03/10/20 19:30> Patient admitted to: Observation <Serge Patel - Last Filed: 03/11/20 08:29> Patient History Date of Service: 03/10/20 Primary Care Provider: None Reason for admission: COVID pneumonia History of Present Illness: 49 -year-old female with no significant past medical history presents emergency department for shortness of breath. Patient tested positive for COVID on 03/05/2020, patient reports increasing shortness of breath since then. Patient was evaluated in the emergency department found to be mildly hypoxic on room air saturations in the high 80s to low 90s, 86% with exertion. Patient reports that she lives alone and up stairs. Labs in the emergency department significant for mildly elevated CRP 32.1 mild elevations in LFTs AST 65 ALT 91, alk-phos 118. Patient with prior cholecystectomy. D-dimer mildly elevated 545, CT PE protocol performed which shows mild to moderate COVID pattern. Patient comfortable on nasal cannula at 2 L at this time, will admit under observation, likely discharge tomorrow home oxygen if she does not get worse overnight. Will hold off on ivermectin/remdecivir due to mildly elevated LFTs, suspect fatty liver disease. 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 - Family History Father -: Heart disease, Hypertension, Diabetes - Social History Smoking Status: Never smoker Alcohol use: Yes CD- Drugs: No Caffeine use: Yes Place of Residence: Home <Ollie Scanlon - Last Filed: 03/10/20 19:30> Date of Service: 03/11/20 Home medications list reviewed: Yes - Past Medical/Surgical History Past Medical History: Patient denies medical history - Family History Family History: Reviewed- Non-Contributory <Serge Patel - Last Filed: 03/11/20 08:29> Allergies No Known Allergies Allergy (Unverified 10/07/11 00:58) Review of Systems 10-point ROS is otherwise unremarkable General: Weakness, Malaise Respiratory: Cough, Dry, Shortness of Breath, SOB with Excertion <Ollie Scanlon - Last Filed: 03/10/20 19:30> Physical Examination - Physical Exam General: Alert, In no apparent distress HEENT: Atraumatic, PERRLA, Mucous membr. moist/pink Neck: Supple Respiratory: Normal air movement, Diminished (Bilaterally) Cardiovascular: Regular rate/rhythm, Normal S1 S2 Capillary refill: <2 Seconds Gastrointestinal: Normal bowel sounds, No tenderness Musculoskeletal: No tenderness Integumentary: No rashes Neurological: Normal speech, Normal strength at 5/5 x4 extr, Normal tone, Normal affect - Studies Laboratory Data (last 24 hrs) 03/10/20 16:35: PT 12.7 H, INR 1.08, APTT 29.6 03/10/20 16:35: WBC 6.60, Hgb 9.4 L, Hct 29.8 L, Plt Count 376 03/10/20 16:35: Sodium 135 L, Potassium 3.2 L, BUN 9, Creatinine 0.65, Glucose 91, Total Bilirubin 0.3, AST 65 H, ALT 91 H, Alkaline Phosphatase 118 H, Lipase 108 03/10/20 15:26: PT Cancelled, INR Cancelled, APTT Cancelled 03/10/20 15:26: WBC Cancelled, Hgb Cancelled, Hct Cancelled, Plt Count Cancelled 03/10/20 15:26: Sodium Cancelled, Potassium Cancelled, BUN Cancelled, Creatinine Cancelled, Glucose Cancelled, Total Bilirubin Cancelled, AST Cancelled, ALT Cancelled, Alkaline Phosphatase Cancelled, Lipase Cancelled <Olile Scanlon - Last Filed: 03/10/20 19:30> - Studies Laboratory Data (last 24 hrs) 03/10/20 16:35: PT 12.7 H, INR 1.08, APTT 29.6 03/10/20 16:35: WBC 6.60, Hgb 9.4 L, Hct 29.8 L, Plt Count 376 03/10/20 16:35: Sodium 135 L, Potassium 3.2 L, BUN 9, Creatinine 0.65, Glucose 91, Total Bilirubin 0.3, AST 65 H, ALT 91 H, Alkaline Phosphatase 118 H, Lipase 108 03/10/20 15:26: PT Cancelled, INR Cancelled, APTT Cancelled 03/10/20 15:26: WBC Cancelled, Hgb Cancelled, Hct Cancelled, Plt Count Cancelled 03/10/20 15:26: Sodium Cancelled, Potassium Cancelled, BUN Cancelled, Creatinine Cancelled, Glucose Cancelled, Total Bilirubin Cancelled, AST Cancelled, ALT Cancelled, Alkaline Phosphatase Cancelled, Lipase Cancelled <Serge Patel - Last Filed: 03/11/20 08:29> Assessment and Plan - Plan Assessment COVID pneumonia with hypoxia Microcytic anemia Mildly elevated LFTs Plan COVID pneumonia with hypoxia: Continue IV steroids, oral supplements. Supplemental oxygen as needed common daily room air saturations and room air saturations for home O2. nutritional services host consult for home O2. Patient doing well on 2 L per nasal cannula at this time, if this continues can likely be discharged tomorrow morning. Patient aware of this. Appreciate further input from pulmonology. DVT prophylaxis Lovenox 40 mg subcutaneous once daily. Will hold off on Remdecivir and ivermectin due to mild elevations in LFTs. Microcytic anemia: Suspect iron deficiency anemia, anemia labs ordered for morning labs. Transfuse for hemoglobin less than 7. Mildly elevated LFTs: Repeat LFTs with morning labs, patient will need repeat labs with primary care provider, made aware of findings. History cholecystectomy, no abdominal pain, denies significant alcohol intake. Suspect fatty liver disease. Discharge Plan: Home Plan to discharge in: 24 Hours - Advance Directives Does patient have a Living Will: No Does patient have a Durable POA for Healthcare: No - Code Status/Comfort Care Code Status Assessed: Yes (Full code) Critical Care: No Time Spent Managing Pts Care (In Minutes): 55 <Ollie Scanlon - Last Filed: 03/10/20 19:30> - Plan Discussed in detail with nurse practitioner. Agree with plan of care. Patient improved. Currently on 2 L per nasal cannula, anticipate discharge today if ox ygen can be arranged as an outpatient. <Serge Patel - Last Filed: 03/11/20 08:29>
[2020-03-10] MEDS ORDERED: BENZONATATE 100 MG CAP PO PRN (20:19)
[2020-03-10] MEDS: ASCORBIC ACID 500 MG TABLET PO SCH (21:50)
[2020-03-10] MEDS: METHYLPREDNISOLONE 40 MG INJ IV SCH (21:50)
[2020-03-10] MEDS ORDERED: MELATONIN 5 MG TABLET PO PRN (21:50)
[2020-03-10] MEDS ORDERED: ACETAMINOPHEN 500 MG TAB PO PRN (21:50)
[2020-03-10] MEDS ORDERED: ONDANSETRON 4 MG/2 ML VIAL IV PRN (21:50)
[2020-03-11 00:03] VITALS: O2SAT 92; BMI 44.9
[2020-03-11] MEDS ORDERED: METHYLPREDNISOLONE 40 MG INJ ONE ×2 (00:25→10:36)
[2020-03-11] MEDS ORDERED: ASCORBIC ACID 500 MG TABLET ONE ×3 (00:25→14:57)
[2020-03-11 06:25] LABS: Absolute Lymphocytes (CBC) 0.9 K/uL (0.7-4.9); Basophils % 0.2 % (0-1.3); Hematocrit 27.7 % (36.0-45.0); Lymphocytes % 15.7 % (15.3-44.8); MPV 8.1 fL (7.6-11.3); RBC Red Blood Cell Count 3.54 M/uL (3.86-4.86)
[2020-03-11 06:43] LABS: ALT/SGPT 87 U/L (12-78); AST/SGOT 52 U/L (15-37); Albumin 3.2 g/dL (3.4-5.0); Alkaline Phosphatase 109 U/L (45-117); BUN Blood Urea Nitrogen 11 mg/dL (7-18); Bicarbonate 27 mmol/L (21-32); Bilirubin Total 0.3 mg/dL (0.2-1.0); Ferritin 24.1 ng/mL (8-388); Glucose Level 146 mg/dL (74-106); Potassium 3.9 mmol/L (3.5-5.1); Protein, Total 8.1 g/dL (6.4-8.2); Sodium Level 138 mmol/L (136-145); Transferrin 286 mg/dL (200-360)
[2020-03-11] MEDS ORDERED: INFLUENZA VACCINE (for 3y+) 0.5 ML DOSE IMVAC ONE ×2 (08:00→17:34)
--- NOTE | 2020-03-11 08:59 | P.CNS ---
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 - Family History Father Medical History: Heart disease, Hypertension, Diabetes - Social History Alcohol use: Yes CD- Drugs: No Caffeine use: Yes Place of Residence: Home Review of Systems General: Weakness Respiratory: Shortness of Breath Physical Examination Temp Pulse Resp BP Pulse Ox 98.4 F 75 20 115/56 L 88 L 03/11/20 00:00 03/11/20 07:42 03/11/20 07:42 03/11/20 07:42 03/11/20 07:42 General: Alert, Oriented x3 Respiratory: Clear to auscultation bilaterally Cardiovascular: No edema, Regular rate/rhythm, Normal S1 S2 Gastrointestinal: Normal bowel sounds, Soft and benign Laboratory Data (last 24 hrs) 03/10/20 16:35: PT 12.7 H, INR 1.08, APTT 29.6 03/10/20 16:35: WBC 6.60, Hgb 9.4 L, Hct 29.8 L, Plt Count 376 03/10/20 16:35: Sodium 135 L, Potassium 3.2 L, BUN 9, Creatinine 0.65, Glucose 91, Total Bilirubin 0.3, AST 65 H, ALT 91 H, Alkaline Phosphatase 118 H, Lipase 108 03/10/20 15:26: PT Cancelled, INR Cancelled, APTT Cancelled 03/10/20 15:26: WBC Cancelled, Hgb Cancelled, Hct Cancelled, Plt Count Cancelled 03/10/20 15:26: Sodium Cancelled, Potassium Cancelled, BUN Cancelled, Creatinine Cancelled, Glucose Cancelled, Total Bilirubin Cancelled, AST Cancelled, ALT Cancelled, Alkaline Phosphatase Cancelled, Lipase Cancelled - Problems (1) Acute respiratory failure due to severe acute respiratory syndrome coronavirus 2 (SARS-CoV-2) infection Current Visit: Yes Status: Acute Plan: Patient is 49 years of age admitted with respiratory failure she is currently doing much better CT has bilateral pneumonia consistent with martino virus infection patient should receive ivermectin liver function tests are mildly elevated continue with steroid she is doing much better vital signs stable setup for home oxygen possible discharge on prednisone and ivermectin
[2020-03-11] MEDS ORDERED: ASPIRIN EC 81 MG TAB PO SCH (09:00)
[2020-03-11] MEDS ORDERED: VITAMIN D 1000 UNIT TAB PO SCH (09:00)
[2020-03-11] MEDS: ASCORBIC ACID 500 MG TABLET PO SCH ×2 (09:00→13:00)
[2020-03-11] MEDS ORDERED: THIAMINE HCL 100 MG TABLET PO SCH (09:00)
[2020-03-11] MEDS: METHYLPREDNISOLONE 40 MG INJ IV SCH (09:00)
[2020-03-11] MEDS ORDERED: ENOXAPARIN 40 MG/0.4 ML SQ SCH (09:00)
[2020-03-11] MEDS ORDERED: ZINC SULFATE 220 MG CAP PO SCH (09:00)
--- NOTE | 2020-03-11 09:08 | P.DS ---
Admission Date: 03/10/20 Discharge Date: 03/11/20 Primary Care Provider: None Disposition: ROUTINE DISCHARGE Discharge Condition: GOOD Reason for Admission: COVID pneumonia Consultations: Pulmonary-Dr. Esparza Procedures: CT Scan in 2011: Fatty liver noted. CT Scan Chest: FINDINGS: No pulmonary emboli are identified. The aorta as imaged shows no acute or suspicious finding. No pericardial thickening or effusion. Peripheral ground-glass opacification present in the lung [place] with interstitial thickening. No endobronchial lesion. No mass or cavitation seen. No pleural effusion or pleural thickening. No mediastinal or hilar suspicious masses. No chest wall masses or abnormal axillary lymphadenopathy. IMPRESSION: No pulmonary emboli identified. Mild to moderate bilateral COVID-19 pneumonia. Medical Problem List: Dyspnea secondary to bilateral COVID pneumonia with hypoxia Chronic anemia related to iron deficiency Mildly elevated LFTs secondary to fatty liver Obesity, BMI 44.9 Brief History of Present Illness: Primary Care Provider: None Reason for admission: COVID pneumonia History of Present Illness: 49 -year-old female with no significant past medical history presents emergency department for shortness of breath. Patient tested positive for COVID on 03/05/2020, patient reports increasing shortness of breath since then. Patient was evaluated in the emergency department found to be mildly hypoxic on room air saturations in the high 80s to low 90s, 86% with exertion. Patient reports that she lives alone and up stairs. Labs in the emergency department significant for mildly elevated CRP 32.1 mild elevations in LFTs AST 65 ALT 91, alk-phos 118. Patient with prior cholecystectomy. D-dimer mildly elevated 545, CT PE protocol performed which shows mild to moderate COVID pattern. Patient comfortable on nasal cannula at 2 L at this time, will admit under observation, likely discharge tomorrow home oxygen if she does not get worse overnight. Will hold off on ivermectin/remdecivir due to mildly elevated LFTs, suspect fatty liver disease. Hospital Course: Patient presented with dyspnea. Patient recent diagnosis with COVID 19 03/05/20. Patient continue to have shortness of breath. Patient found to be hypoxic. CT chest showed bilateral viral pneumonia. Patient was admitted Overnite. Patient received IV steroids and treatment. Patient improved. Patient still requires oxygen at discharge. At discharge patient will continue with home oxygen to maintain sats above 93%. Patient currently on 2 L per nasal cannula. Recommend to continue incentive spirometer and ambulation. Recommend proning when lying down. At discharge patient will continue with prednisone 20 mg 1 pill twice daily for 1 pill once daily for 7 days. The patient will also continue with supplementation including vitamin-C 500 mg 1 pill 3 times a day, vitamin-D 2000 units daily, melatonin 5 mg at bedtime, thiamine 100 mg 1 pill twice daily, and zinc 220 mg 1 pill daily. Patient will will be provided Pro air 2 puffs 3 times a day as needed for shortness of breath and Tessalon Perles 100 mg 3 times a day as needed for cough. Patient will continue with aspirin 81 mg daily. Patient will continue with CDC guidelines on COVID 19 isolation. Patient will need to continue with face mask use, social distancing, and hand washing. Patient will remain isolated at home for at least 10 days. Recommend follow up with pulmonology within 1 week to follow up this hospitalization and continue her care. Pulmonology will help wean her off oxygen. Recommend to establish care with a local PCP in the area. Contact information will be provided. Patient with anemia. This appears chronic. Patient found to have iron deficiency. At discharge patient will continue with iron supplementation 325 mg 1 pill twice daily. Recommend to recheck CBC and iron level in 2-4 weeks to monitor progress. Because of her anemia patient will also be started on Pepcid 20 mg 1 pill twice daily as the patient may have underlying GERD. Patient should follow up with GI as an outpatient further monitor. Consider outpatient colonoscopy and EGD to further evaluate her anemia. Contact information will be provided. Patient with elevated liver function test. This is likely related to fatty liver. Prior CT scan in 2011 showed fatty liver. Recommend to recheck his CMP in 2-4 weeks to monitor resolution. Education on fatty liver will be provided. Recommend follow up with GI as an outpatient to further address. Lifestyle modification education provided. Vital Signs/Physical Exam: Temp Pulse Resp BP Pulse Ox 98.4 F 75 20 115/56 L 88 L 03/11/20 00:00 03/11/20 07:42 03/11/20 07:42 03/11/20 07:42 03/11/20 07:42 General: Alert, In no apparent distress, Oriented x3, Cooperative HEENT: Atraumatic Neck: Supple Respiratory: Other (Patient on 2 L. No respiratory distress noted. No tachypnea noted.) Cardiovascular: Normal pulses Gastrointestinal: No tenderness, No masses, No rebound, No guarding Integumentary: No tenderness/swelling Neurological: Normal speech, Normal strength at 5/5 x4 extr, Normal tone, Normal affect Laboratory Data at Discharge: WBC 5.60 K/uL (4.3-10.9) D 03/11/20 06:03 Hgb 8.8 g/dL (12.0-15.0) L 03/11/20 06:03 Hct 27.7 % (36.0-45.0) L 03/11/20 06:03 Plt Count 362 K/uL (152-406) 03/11/20 06:03 PT 12.7 SECONDS (9.5-12.5) H 03/10/20 16:35 INR 1.08 03/10/20 16:35 APTT 29.6 SECONDS (24.3-36.9) 03/10/20 16:35 Sodium 138 mmol/L (136-145) 03/11/20 06:03 Potassium 3.9 mmol/L (3.5-5.1) 03/11/20 06:03 BUN 11 mg/dL (7-18) 03/11/20 06:03 Creatinine 0.59 mg/dL (0.55-1.3) 03/11/20 06:03 Glucose 146 mg/dL (74-106) H 03/11/20 06:03 Total Bilirubin 0.3 mg/dL (0.2-1.0) 03/11/20 06:03 AST 52 U/L (15-37) H 03/11/20 06:03 ALT 87 U/L (12-78) H 03/11/20 06:03 Alkaline Phosphatase 109 U/L (45-117) 03/11/20 06:03 Lipase 108 U/L (73-393) 03/10/20 16:35 Home Medications: Albuterol Sulfate [Proair Hfa] 2 puff IH TID PRN #1 hfa.aer.ad 03/11/20 Ascorbic Acid [Vitamin C*] 500 mg PO TID #90 tablet 03/11/20 Aspirin [Aspirin EC 81 MG] 81 mg PO DAILY #90 tablet.dr 03/11/20 Benzonatate [Tessalon Perle] 100 mg PO TID PRN #15 cap 03/11/20 Cholecalciferol (Vitamin D3) [Vitamin D 1000 Iu Tab*] 2,000 unit PO DAILY #60 tab 03/11/20 Famotidine [Pepcid] 20 mg PO BID #60 tab 03/11/20 Ferrous Sulfate [Iron] 325 mg PO BID #60 tablet 03/11/20 Melatonin 5 mg PO BEDTIME #30 tablet 03/11/20 Thiamine HCl [Vitamin B-1*] 200 mg PO BID #60 tablet 03/11/20 Zinc Sulfate [Zinc Sulfate*] 220 mg PO DAILY #30 cap 03/11/20 predniSONE [Prednisone*] 20 mg PO SEECOM #21 tab 03/11/20 New Medications: Aspirin [Aspirin EC 81 MG] 81 mg PO DAILY #90 tablet. Ferrous Sulfate [Iron] 325 mg PO BID #60 tablet Melatonin 5 mg PO BEDTIME #30 tablet Famotidine [Pepcid] 20 mg PO BID #60 tab predniSONE [Prednisone*] 20 mg PO SEECOM #21 tab Albuterol Sulfate [Proair Hfa] 2 puff IH TID PRN #1 hfa.aer.ad PRN Reason: Shortness Of Breath Benzonatate [Tessalon Perle] 100 mg PO TID PRN #15 cap PRN Reason: Cough Thiamine HCl [Vitamin B-1*] 200 mg PO BID #60 tablet Ascorbic Acid [Vitamin C*] 500 mg PO TID #90 tablet Cholecalciferol (Vitamin D3) [Vitamin D 1000 Iu Tab*] 2,000 unit PO DAILY #60 tab Zinc Sulfate [Zinc Sulfate*] 220 mg PO DAILY #30 cap Physician Discharge Instructions: Recommend to establish care with a local PCP in the area. Contact information will be provided. Patient presented with dyspnea. Patient recent diagnosis with COVID 19 03/05/20. Patient continue to have shortness of breath. Patient found to be hypoxic. CT chest showed bilateral viral pneumonia. Patient was admitted Overnite. Patient received IV steroids and treatment. Patient improved. Patient still requires oxygen at discharge. At discharge patient will continue with home oxygen to maintain sats above 93%. Patient currently on 2 L per nasal cannula. Recommend to continue incentive spirometer and ambulation. Recommend proning when lying down. At discharge patient will continue with prednisone 20 mg 1 pill twice daily for 1 pill once daily for 7 days. The patient will also continue with supplementation including vitamin-C 500 mg 1 pill 3 times a day, vitamin-D 2000 units daily, melatonin 5 mg at bedtime, thiamine 100 mg 1 pill twice daily, and zinc 220 mg 1 pill daily. Patient will will be provided Pro air 2 puffs 3 times a day as needed for shortness of breath and Tessalon Perles 100 mg 3 times a day as needed for cough. Patient will continue with aspirin 81 mg daily. Patient will continue with CDC guidelines on COVID 19 isolation. Patient will need to continue with face mask use, social distancing, and hand washing. Patient will remain isolated at home for at least 10 days. Recommend follow up with pulmonology within 1 week to follow up this hospitalization and continue her care. Pulmonology will help wean her off oxygen. Recommend to establish care with a local PCP in the area. Contact information will be provided. Patient with anemia. This appears chronic. Patient found to have iron deficiency. At discharge patient will continue with iron supplementation 325 mg 1 pill twice daily. Recommend to recheck CBC and iron level in 2-4 weeks to monitor progress. Because of her anemia patient will also be started on Pepcid 20 mg 1 pill twice daily as the patient may have underlying GERD. Patient should follow up with GI as an outpatient further monitor. Consider outpatient colonoscopy and EGD to further evaluate her anemia. Contact information will be provided. Patient with elevated liver function test. This is likely related to fatty liver. Prior CT scan in 2011 showed fatty liver. Recommend to recheck his CMP in 2-4 weeks to monitor resolution. Education on fatty liver will be provided. Recommend follow up with GI as an outpatient to further address. Lifestyle modification education provided. Diet: ADA Activity: Ad caprice Followup: NONE,NONE [Primary Care Provider] - Time spent managing pt's care (in minutes): 55
[2020-03-11] MEDS ORDERED: IVERMECTIN 3 MG TABLET PO ONE (09:30)
[2020-03-11] MEDS ORDERED: ASPIRIN EC 81 MG TAB PO ONE (10:35)
[2020-03-11] MEDS ORDERED: ZINC SULFATE 220 MG CAP ONE (10:35)
[2020-03-11] MEDS ORDERED: VITAMIN D 1000 UNIT TAB ONE (10:35)
[2020-03-11] MEDS ORDERED: ENOXAPARIN 40 MG/0.4 ML SQ ONE (10:36)
--- NOTE | 2020-03-11 12:56 | EKG ---
Test Date: 2020-03-10 Test Time: 16:16:26 Multimedia Designer: MELINDA MEASUREMENT RESULTS: Intervals: Rate: 93 AR: 128 QRSD: 82 QT: 338 QTc: 420 Magnet: P: 45 AR: 128 QRS: 30 T: 31 INTERPRETIVE STATEMENTS: Normal sinus rhythm Nonspecific ST and T wave abnormality Abnormal ECG No previous ECG available for comparison Electronically Signed On 03-11-20 12:53:30 [employer] PHOTOGRAPHER by Quintin Banuelos
[2020-03-11] MEDS ORDERED: THIAMINE HCL 100 MG TABLET ONE ×2 (14:57→15:00)
[2020-03-11 15:57] VITALS: BP 115/56; TEMP 98.1
== END 2020-03-11 19:08 | disposition home or self-care (01) ==
LOC: ER 11:34 → ERHOLD 19:10
PROVIDERS: ADMIT Family Medicine; ATTEND Family Medicine
DX: U07.1 COVID-19 (principal); J12.82 Pneumonia due to coronavirus disease 2019; J96.01 Acute respiratory failure with hypoxia; D50.9 Iron deficiency anemia, unspecified; K76.0 Fatty (change of) liver, not elsewhere classified; E66.01 Morbid (severe) obesity due to excess calories; Z68.41 Body mass index [BMI] 40.0-44.9, adult; Z23 Encounter for immunization; Z90.49 Acquired absence of other specified parts of digestive tract; Z82.49 Family history of ischemic heart disease and other diseases of the circulatory system; Z83.3 Family history of diabetes mellitus
CPT/HCPCS: 93005; 87040 ×2; 85025 ×2; 80048; 36415; 85610; 85379; 80076; 83605; 85730; 84484; 82728 ×2; 83690; 83540; 80053; 84145; 84466; 86140 ×2; 71275; 71046; 90471; Q9967; Q2035; J1650; J1100; J2920 ×2; 96374; 99285; G0378

== ENCOUNTER 2022-10-08 05:14 | Emergency (ER) | payer BC, SELFPAY ==
[2022-10-08] MEDS ORDERED: PROMETHAZINE 25 MG TABLET ONE ×2 (05:45→06:40)
[2022-10-08] MEDS ORDERED: HYDROCODONE/APAP 10/325 TAB ONE ×2 (05:46→06:40)
[2022-10-08] MEDS ORDERED: IBUPROFEN 400 MG TAB ONE (05:46)
--- NOTE | 2022-10-08 06:39 | EDPHYS ---
Physician Documentation [facility] Name: Kerry Brush Age: 52 yrs Sex: Female : 1970 Arrival Date: 10/08/2022 Time: 05:14 Bed 13 Private MD: ED Physician Johan Andrade HPI: 10/08 05:28 This 52 yrs old Female presents to ER via Unassigned with complaints of Nose sp4 Bleed. 06:31 52-year-old female presents with left acute moderate nasal bleeding. . sp4 06:32 Patient states nasal bleeding started 430 this morning, in the last week patient had sp4 3-4 nasal bleeds, history of nosebleeds as a child. Denied taking any anticoagulants.. Historical: - Allergies: 05:29 No Known Allergies; pf1 - PMHx: 05:29 epitaxis; pf1 - PSHx: 05:29 Cholecystectomy; Ligation of fallopian tube; pf1 - Immunization history:: Adult Immunizations up to date, Last tetanus immunization: > 10 years ago Flu vaccine is not up to date. - Social history:: Smoking status: Patient denies any tobacco usage or history of. Patient uses alcohol, occasionally. Patient/guardian denies using street drugs. - Family history:: not pertinent. ROS: 06:32 Constitutional: Negative for fever, chills, and weight loss, Eyes: Negative for injury, sp4 pain, redness, and discharge, ENT: Negative for injury, pain, and discharge, positive active moderate epistaxis left nostril. Right nostril exam is normal Neck: Negative for injury, pain, and swelling, Cardiovascular: Negative for chest pain, palpitations, and edema, Respiratory: Negative for shortness of breath, cough, wheezing, and pleuritic chest pain, Abdomen/GI: Negative for abdominal pain, nausea, vomiting, diarrhea, and constipation, Back: Negative for injury and pain, MS/Extremity: Negative for injury and deformity, Skin: Negative for injury, rash, and discoloration, Neuro: Negative for headache, weakness, numbness, tingling, and seizure, Psych: Negative for depression, anxiety, Allergy/Immunology: Negative for hives, rash, and allergies Endocrine: Negative for neck swelling, polydipsia, polyuria, polyphagia, and weight changes Hematologic/Lymphatic: Negative for swollen nodes, abnormal bleeding, and unusual bruising Exam: 06:32 Constitutional: This is a well developed, well nourished patient who is awake, alert, sp4 and in no acute distress. Head/Face: Normocephalic, atraumatic. Eyes: Pupils equal round and reactive to light, extra-ocular motions intact. Lids and lashes normal. Conjunctiva and sclera are not injected. Cornea within normal limits. Periorbital areas with no swelling, redness, or edema. ENT: Tympanic membranes are normal and external auditory canals are clear. Oropharynx with no redness, swelling, or masses, exudates, or evidence of obstruction, uvula midline. Mucous membranes moist. Positive acute epistaxis left nostril moderate amount. This appears to be posterior, Neck: Trachea midline, no thyromegaly or masses palpated, and no cervical lymphadenopathy. Supple, full range of motion without nuchal rigidity, or vertebral point tenderness. Chest/axilla: Normal chest wall appearance and motion. Nontender with no deformity. No lesions are appreciated. Cardiovascular: Regular rate and rhythm with a normal S1 and S2. No gallops, murmurs, or rubs. Normal PMI, no JVD. No pulse deficits. Respiratory: Lungs have equal breath sounds bilaterally, clear to auscultation and percussion. No rales, rhonchi or wheezes noted. No increased work of breathing, no retractions or nasal flaring. Abdomen/GI: Soft, non-tender, with normal bowel sounds. No distension or tympany. No guarding or rebound. No evidence of tenderness throughout. Back: No spinal tenderness. No costovertebral tenderness. Skin: Warm, dry with normal turgor. Normal color with no rashes, no lesions, and no evidence of cellulitis. MS/ Extremity: Pulses equal, no cyanosis. Neurovascular intact. Full, normal range of motion. Neuro: Awake and alert, GCS 15, oriented to person, place, time, and situation. Cranial nerves II-XII grossly intact. Motor strength 5/5 in all extremities. Sensory grossly intact. Psych: Awake, alert, with orientation to person, place and time. Behavior, mood, and affect are within normal limits Vital Signs: 05:26 BP 145 / 73; Pulse 77; Resp 16; Temp 97.9; Pulse Ox 98% ; Weight 97.52 kg; Height 5 ft. pf1 1 in. ; Pain 0/10; 05:39 BP 131 / 71; Pulse 75; Resp 17 S; Pulse Ox 98% on R/A; ha1 06:13 BP 137 / 77; Pulse 74; Resp 16 S; Pulse Ox 100% on R/A; ha1 06:58 BP 144 / 72; Pulse 74; Resp 16 S; Pulse Ox 100% on R/A; ha1 05:26 Body Mass Index 40.62 (97.52 kg, 154.94 cm) pf1 05:26 Pain Scale: Adult pf1 Procedures: 06:29 Epistaxis treatment: A moderate amount of bleeding noted from left nare. Treated using sp4 posterior packing, Nasal pack in the left nostril . Bleeding stopped. No complications . MDM: 06:29 Data reviewed: vital signs, nurses notes. sp4 06:29 Differential diagnosis: trauma, sinusitis, epistaxis r/t trauma, spontaneous epistaxis. sp4 Consideration of Admission/Observation Escalation of care including admission/observation considered. ED course: Left nasal packing was introduced with resolution of a nosebleed.. Significant pain medicine was given to the patient for discomfort associated with nasal packing. Will prescribe Keflex twice a day to prevent nasal infection, will also prescribe tramadol, ibuprofen, and Phenergan for pain. We will advised to see ENT on outpatient basis., Informed patient that nasal packing has to be removed in 30 days preferably by the ENT MD . 06:37 Patient medically screened. sp4 Administered Medications: 05:32 Drug: HYDROcodone-acetaminophen PO 10 mg-325 mg 1 tabs Route: PO; ha1 06:13 Follow up: Response: No adverse reaction; Pain is unchanged, physician notified; RASS: ha1 Alert and Calm (0) 05:32 Drug: Promethazine PO 25 mg Route: PO; ha1 06:13 Follow up: Response: No adverse reaction ha1 05:32 Drug: Ibuprofen PO 800 mg Route: PO; ha1 06:13 Follow up: Response: No adverse reaction; Pain is unchanged, physician notified ha1 06:37 Drug: Ketorolac IM 60 mg Route: IM; Site: right ventrogluteal; ha1 06:42 Drug: Cephalexin PO 500 mg Route: PO; ha1 06:58 Follow up: Response: No adverse reaction ha1 06:58 Drug: [place] PO 10 mg-325 mg 1 tabs Route: PO; ha1 07:06 Follow up: Response: No adverse reaction ha1 06:58 Drug: Promethazine PO 25 mg Route: PO; ha1 07:00 Follow up: Response: No adverse reaction ha1 Disposition Summary: 10/08/22 06:37 Discharge Ordered Location: Home sp4 Problem: new sp4 Symptoms: have improved sp4 Condition: Stable sp4 Diagnosis - Epistaxis sp4 - Acute left posterior epistaxis sp4 Followup: sp4 - With: Raquel Rasmussen MD - When: 2 - 3 days - Reason: Recheck today's complaints Discharge Instructions: - Discharge Summary Sheet sp4 - Nosebleed, Adult, [id number] sp4 Forms: - Work release form ha1 - Patient Portal Instructions sp4 Prescriptions: - Cephalexin 500 mg Oral Capsule - take 1 capsule by ORAL route every 12 hours for 10 days; 20 capsule; Refills: sp4 0, Product Selection Permitted - Ibuprofen 800 mg Oral Tablet - take 1 tablet by ORAL route every 8 hours As needed take with food; 30 tablet; sp4 Refills: 0, Product Selection Permitted - Tramadol 50 mg Oral Tablet - take 1 tablet by ORAL route every 6 hours as needed for pain; 20 tablet; sp4 Refills: 0, Product Selection Permitted - promethazine 25 mg Oral Tablet - take 1 tablet by ORAL route every 6 hours As needed; 30 tablet; Refills: 0, sp4 Product Selection Permitted Signatures: Bonnie Haque RN RN ha1 Leigh Puckett RN RN pf1 Johan Andrade MD MD sp4
--- NOTE | 2022-10-08 06:39 | ER ---
Nurse's Notes [facility] Name: Kerry Brush Age: 52 yrs Sex: Female : 1970 Arrival Date: 10/08/2022 Time: 05:14 Bed 13 Private MD: Diagnosis: Epistaxis;Acute left posterior epistaxis Presentation: 10/08 05:26 Chief complaint: Patient states: nose bleed,onset 0430 this AM. Patient stated had 3 pf1 nose bleeds earlier this week and 1 last week. Patient stated history of nosebleeds as a child. Coronavirus screen: Vaccine status: Patient reports receiving the 2nd dose of the covid vaccine. 3 doses of pfizer Client denies travel out of the [place] in the last 14 days. At this time, the client does not indicate any symptoms associated with coronavirus-19. Ebola Screen: Patient negative for fever greater than or equal to 101.5 degrees Fahrenheit, and additional compatible Ebola Virus Disease symptoms. Initial Sepsis Screen: Does the patient meet any 2 criteria? No. Patient's initial sepsis screen is negative. Does the patient have a suspected source of infection? No. Patient's initial sepsis screen is negative. Risk Assessment: Do you want to hurt yourself or someone else? Patient reports no desire to harm self or others. 05:26 Method Of Arrival: Ambulatory 1 05:26 Acuity: JAVON 4 pf1 05:42 Onset of symptoms was October 04, 2022. [place] Triage Assessment: 05:16 General: Appears uncomfortable, Behavior is cooperative. Pain: Complains of pain in ha1 headache Pain does not radiate. Pain currently is 8 out of 10 on a pain scale. Quality of pain is described as pressure, Pain began suddenly. EENT: Reports nose bleed. Neuro: Level of Consciousness is awake, alert, obeys commands, Oriented to person, place, time, situation, Reports headache. Cardiovascular: Patient's skin is warm and dry. Respiratory: Airway is patent Respiratory effort is even, unlabored, Respiratory pattern is regular, symmetrical. Musculoskeletal: Circulation, motion, and sensation intact. Range of motion: intact in all extremities. Historical: - Allergies: 05:29 No Known Allergies; pf1 - PMHx: 05:29 epitaxis; pf1 - PSHx: 05:29 Cholecystectomy; Ligation of fallopian tube; pf1 - Immunization history:: Adult Immunizations up to date, Last tetanus immunization: > 10 years ago Flu vaccine is not up to date. - Social history:: Smoking status: Patient denies any tobacco usage or history of. Patient uses alcohol, occasionally. Patient/guardian denies using street drugs. - Family history:: not pertinent. Screenin:36 [facility] ED Fall Risk Assessment (Adult) History of falling in the last 3 months, pf1 including since admission No falls in past 3 months (0 pts) Confusion or Disorientation No (0 pts) Intoxicated or Sedated No (0 pts) Impaired Gait No (0 pts) Mobility Assist Device Used No (0 pt) Altered Elimination No (0 pt) Score/Fall Risk Level 0 - 2 = Low Risk Oriented to surroundings, Maintained a safe environment, Educated pt \T\ family on fall prevention, incl call for assistance when getting out of bed, Assessed \T\ reinforced patient's understanding of fall precautions, Provided non-skid footwear, Hourly rounding (assess needs \T\ fall precautionary measures) done, Used ambulatory aids as needed (educated on \T\ assisted with), Used gait belt as appropriate. Abuse screen: Denies threats or abuse. Nutritional screening: No deficits noted. Tuberculosis screening: No symptoms or risk factors identified. Assessment: 05:16 Reassessment: see triage assessment. ha1 06:13 Reassessment: Patient and/or family updated on plan of care and expected duration. Pain ha1 level reassessed. Patient is alert, oriented x 3, equal unlabored respirations, skin warm/dry/pink. pain 10/10. pain not relieved by pain medication. Notified Dr. Olivera 06:59 Reassessment: Patient and/or family updated on plan of care and expected duration. Pain ha1 level reassessed. Patient is alert, oriented x 3, equal unlabored respirations, skin warm/dry/pink. leaving with family members, explained pt. will be drossy and should not drive. Patient states feeling better. Patient states symptoms have improved. Vital Signs: 05:26 BP 145 / 73; Pulse 77; Resp 16; Temp 97.9; Pulse Ox 98% ; Weight 97.52 kg; Height 5 ft. pf1 1 in. ; Pain 0/10; 05:39 BP 131 / 71; Pulse 75; Resp 17 S; Pulse Ox 98% on R/A; ha1 06:13 BP 137 / 77; Pulse 74; Resp 16 S; Pulse Ox 100% on R/A; ha1 06:58 BP 144 / 72; Pulse 74; Resp 16 S; Pulse Ox 100% on R/A; ha1 05:26 Body Mass Index 40.62 (97.52 kg, 154.94 cm) pf1 05:26 Pain Scale: Adult pf1 ED Course: 05:16 Patient arrived in ED. mr 05:16 Arm band placed on right wrist. ha1 05:27 Johan Andrade MD is Attending Physician. sp4 05:28 Triage completed. pf1 05:30 Patient has correct armband on for positive identification. Bed in low position. Call pf1 light in reach. 05:32 Bonnie Haque RN is Primary Nurse. ha1 06:37 Raquel Rasmussen MD is Referral Physician. sp4 06:48 No provider procedures requiring assistance completed. Patient did not have IV access ha1 during this emergency room visit. 06:59 Provided Education on: follow up with specialist . ha1 Administered Medications: 05:32 Drug: HYDROcodone-acetaminophen PO 10 mg-325 mg 1 tabs Route: PO; ha1 06:13 Follow up: Response: No adverse reaction; Pain is unchanged, physician notified; RASS: ha1 Alert and Calm (0) 05:32 Drug: Promethazine PO 25 mg Route: PO; ha1 06:13 Follow up: Response: No adverse reaction ha1 05:32 Drug: Ibuprofen PO 800 mg Route: PO; ha1 06:13 Follow up: Response: No adverse reaction; Pain is unchanged, physician notified ha1 06:37 Drug: Ketorolac IM 60 mg Route: IM; Site: right ventrogluteal; ha1 06:42 Drug: Cephalexin PO 500 mg Route: PO; ha1 06:58 Follow up: Response: No adverse reaction ha1 06:58 Drug: Combined Locks PO 10 mg-325 mg 1 tabs Route: PO; ha1 07:06 Follow up: Response: No adverse reaction ha1 06:58 Drug: Promethazine PO 25 mg Route: PO; ha1 07:00 Follow up: Response: No adverse reaction ha1 Medication: 05:41 VIS not applicable for this client. ha1 Outcome: 06:37 Discharge ordered by . sp4 06:59 Discharged to home ambulatory, with family. ha1 06:59 Condition: stable 06:59 Discharge instructions given to patient, family, Instructed on discharge instructions, follow up and referral plans. medication usage, Demonstrated understanding of instructions, follow-up care, medications, Prescriptions given X 4. 07:00 Patient left the ED. ha1 Signatures: Elizabeth Gomez Bonnie Haque RN RN ha1 Leigh Puckett RN RN pf1 Johan Andrade MD MD sp4 Corrections: (The following items were deleted from the chart) 06:43 06:13 Reassessment: Patient and/or family updated on plan of care and expected ha1 duration. Pain level reassessed. Patient is alert, oriented x 3, equal unlabored respirations, skin warm/dry/pink. pain 10/ ha1
[2022-10-08] MEDS ORDERED: KETOROLAC 30 MG/ML INJ ONE (06:41)
[2022-10-08] MEDS ORDERED: CEPHALEXIN 250 MG CAP ONE (06:51)
[2022-10-08 07:05] VITALS: TEMP 97.9
[2022-10-08 07:08] VITALS: O2SAT 100
[2022-10-08 07:09] VITALS: BP 144/72
== END 2022-10-08 07:00 | disposition home or self-care (01) ==
LOC: ER 05:14
PROC: 2Y41X5Z Packing of Nasal Region using Packing Material (ICD-10-PCS; principal; 2022-10-08)
DX: R04.0 Epistaxis (principal)
CPT/HCPCS: 30901; 96372; 99284; Q0169

== ENCOUNTER 2022-10-12 10:18 | Emergency (ER) | payer SELFPAY ==
--- NOTE | 2022-10-12 12:38 | EDPHYS ---
Physician Documentation [facility] Name: Kerry Brush Age: 52 yrs Sex: Female : 1970 Arrival Date: 10/12/2022 Time: 10:18 Bed 11 Private MD: ED Physician Aleksandr Cheng HPI: 10/12 12:35 This 52 yrs old Female presents to ER via Ambulatory with complaints of Nose rn Problem. 12:35 The patient presents with. Patient reports was here the other day and had nose packed rn after nosebleed. Not on blood thinners. Unable to follow-up with ENT and told after 5 days if unable to follow-up to come here for removal. No acute complaints. No fever. No drainage. And no further bleeding.. Historical: - Allergies: 10:50 No Known Allergies; hb - PMHx: 10:50 epitaxis; hb - PSHx: 10:50 Cholecystectomy; Ligation of fallopian tube; hb - Immunization history:: Adult Immunizations up to date. - Social history:: Smoking status: Patient denies any tobacco usage or history of. - Family history:: not pertinent. - Hospitalizations: : No recent hospitalization is reported. ROS: 12:35 Constitutional: Negative for fever, chills, and weight loss, ENT: Denies further rn bleeding or drainage Exam: 12:35 Constitutional: This is a well developed, well nourished patient who is awake, alert, rn and in no acute distress. ENT: Left nasal packing in place, no blood or drainage noted Vital Signs: 10:48 BP 143 / 91; Pulse 74; Resp 16; Temp 98.3; Pulse Ox 100% on R/A; Weight 97.52 kg; hb Height 5 ft. 1 in. ; Pain 3/10; 10:48 Body Mass Index 40.62 (97.52 kg, 154.94 cm) hb 10:48 Pain Scale: Adult hb MDM: 10:39 Patient medically screened. rn 12:35 Differential diagnosis: spontaneous epistaxis. Data reviewed: vital signs, nurses rn notes, old medical records, and as a result, I will discharge patient. Counseling: I had a detailed discussion with the patient and/or guardian regarding the historical points, exam findings, and any diagnostic results supporting the discharge/admit diagnosis, the need for outpatient follow up, to return to the emergency department if symptoms worsen or persist or if there are any questions or concerns that arise at home. Special discussion: I discussed with the patient/guardian in detail that at this point there is no indication for admission to the hospital. It is understood, however, that if the symptoms persist or worsen the patient needs to return immediately for re-evaluation. Based on the history and exam findings, there is no indication for further emergent testing or inpatient evaluation. I discussed with the patient/guardian the need to see the ENT specialist for further evaluation of the symptoms. I discussed with the patient/guardian the need to see the primary care provider for further evaluation of the symptoms. ED course: Packing removed without further bleeding. Observed here for 2 hours and no further bleeding, feels better and thankful for removal. Will DC home with return precautions.. 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
--- NOTE | 2022-10-12 12:38 | ER ---
Nurse's Notes [facility] Name: Kerry Brush Age: 52 yrs Sex: Female : 1970 Arrival Date: 10/12/2022 Time: 10:18 Bed 11 Private MD: Diagnosis: Epistaxis-Resolved;Encounter for nasal packing removal Presentation: 10/12 10:48 Chief complaint: Seen in ED for nose bleed Sunday 10/08, here for removal of Rhino hb Rocket. Coronavirus screen: At this time, the client does not indicate any symptoms associated with coronavirus-19. Ebola Screen: No symptoms or risks identified at this time. Initial Sepsis Screen: Does the patient meet any 2 criteria? No. Patient's initial sepsis screen is negative. Does the patient have a suspected source of infection? No. Patient's initial sepsis screen is negative. Risk Assessment: Do you want to hurt yourself or someone else? Patient reports no desire to harm self or others. Onset of symptoms was October 08, 2022. 10:48 Method Of Arrival: Ambulatory hb 10:48 Acuity: JAVON 4 hb Historical: - Allergies: 10:50 No Known Allergies; hb - PMHx: 10:50 epitaxis; hb - PSHx: 10:50 Cholecystectomy; Ligation of fallopian tube; hb - Immunization history:: Adult Immunizations up to date. - Social history:: Smoking status: Patient denies any tobacco usage or history of. - Family history:: not pertinent. - Hospitalizations: : No recent hospitalization is reported. Screenin:15 [facility] ED Fall Risk Assessment (Adult) Score/Fall Risk Level 0 - 2 = Low Risk ll1 Oriented to surroundings, Maintained a safe environment, Educated pt \T\ family on fall prevention, incl call for assistance when getting out of bed, Hourly rounding (assess needs \T\ fall precautionary measures) done. Abuse screen: Denies threats or abuse. Nutritional screening: No deficits noted. Tuberculosis screening: No symptoms or risk factors identified. Assessment: 11:10 Reassessment: No changes from previously documented assessment. Dr. Cheng at . ll1 General: Appears uncomfortable, Behavior is calm, cooperative, appropriate for age. Pain: Complains of pain in L nare Quality of pain is described as aching. EENT: Nares rhino rocket removed. No active bleeding. Nasal clamped applied. Tolerated well. . Reports nasal congestion pain in L nare. 12:23 Reassessment: No changes from previously documented assessment. Patient and/or family ll1 updated on plan of care and expected duration. Pain level reassessed. Vital Signs: 10:48 BP 143 / 91; Pulse 74; Resp 16; Temp 98.3; Pulse Ox 100% on R/A; Weight 97.52 kg; hb Height 5 ft. 1 in. ; Pain 3/10; 10:48 Body Mass Index 40.62 (97.52 kg, 154.94 cm) hb 10:48 Pain Scale: Adult hb ED Course: 10:21 Patient arrived in ED. mg5 10:39 Aleksandr Cheng MD is Attending Physician. rn 10:50 Triage completed. hb 11:16 Patient has correct armband on for positive identification. Bed in low position. Call ll1 light in reach. Provided Education on: n/a. 12:46 No provider procedures requiring assistance completed. Patient did not have IV access mb9 during this emergency room visit. Administered Medications: No medications were administered Medication: 12:47 VIS not applicable for this client. mb9 Outcome: 12:38 Discharge ordered by . rn 12:46 Discharged to home ambulatory. mb9 12:46 Condition: stable 12:46 Discharge instructions given to patient, Instructed on discharge instructions, follow up and referral plans. Demonstrated understanding of instructions, follow-up care. 12:49 Patient left the ED. mb9 Signatures: Aleksandr Cheng MD MD rn Baxter, Heather, RN RN Angeline Palomares RN RN [facility] Elizabeth Hung RN RN mb9 Martha Shanks mg5
[2022-10-12 13:17] VITALS: BP 143/91; TEMP 98.3; O2SAT 100
== END 2022-10-12 12:49 | disposition home or self-care (01) ==
LOC: ER 10:18
DX: Z48.00 Encounter for change or removal of nonsurgical wound dressing (principal)
CPT/HCPCS: 99282

== ENCOUNTER 2023-10-18 08:52 | Emergency (ER) | payer SELFPAY ==
[2023-10-18 10:09] LABS: SARS-CoV-2 Antigen CONTROL BLUE LINE VIS/BG OK; SARS-CoV-2 Antigen Rapid Res Negative (Negative)
--- NOTE | 2023-10-18 10:15 | EDPHYS ---
Physician Documentation [facility] Name: Kerry Brush Age: 53 yrs Sex: Female : 1970 Arrival Date: 10/18/2023 Time: 08:52 Bed 12 Private MD: ED Physician Lester Adorno HPI: 10/17 09:58 This 53 yrs old Female presents to ER via Ambulatory with complaints of Flu sp3 Symptoms. 09:58 53-year-old female with no significant past medical history presents with sinus sp3 congestion, fullness consistent with her prior sinus infections. She also has a mild cough, subjective fever and bodyaches. Potential sick contacts noted. ROS negative for neck pain, chest pain, shortness of breath, abdominal pain, vomit, diarrhea, syncope, rash, prolonged immobilization, or any other signs or symptoms on ROS at this time.. Historical: - Allergies: 09:21 No Known Allergies; iw - PMHx: 09:21 epitaxis; iw - PSHx: 09:21 Cholecystectomy; Ligation of fallopian tube; iw - Immunization history:: Adult Immunizations. - Infectious Disease History:: Denies. - Social history:: Smoking status: . ROS: 09:59 Constitutional: Negative for fever, chills, and weight loss, Eyes: Negative for injury, sp3 pain, redness, and discharge, Neck: Negative for injury, pain, and swelling, Cardiovascular: Negative for chest pain, palpitations, and edema, Abdomen/GI: Negative for abdominal pain, nausea, vomiting, diarrhea, and constipation, Back: Negative for injury and pain, MS/Extremity: Negative for injury and deformity, Skin: Negative for injury, rash, and discoloration, Neuro: Negative for headache, weakness, numbness, tingling, and seizure, Psych: Negative for depression, anxiety, suicide ideation, homicidal ideation, and hallucinations, Allergy/Immunology: Negative for hives, rash, and allergies, Endocrine: Negative for neck swelling, polydipsia, polyuria, polyphagia, and marked weight changes, Hematologic/Lymphatic: Negative for swollen nodes, abnormal bleeding, and unusual bruising, 09:59 All other systems are negative, Exam: 09:59 Constitutional: This is a well developed, well nourished patient who is awake, alert, sp3 and in no acute distress. Head/Face: Normocephalic, atraumatic. Eyes: Pupils equal round and reactive to light, extra-ocular motions intact. Lids and lashes normal. Conjunctiva and sclera are non-icteric and not injected. Cornea within normal limits. Periorbital areas with no swelling, redness, or edema. Neck: Trachea midline, no thyromegaly or masses palpated, and no cervical lymphadenopathy. Supple, full range of motion without nuchal rigidity, or vertebral point tenderness. No Meningismus. Chest/axilla: Normal chest wall appearance and motion. Nontender with no deformity. No lesions are appreciated. Cardiovascular: Regular rate and rhythm with a normal S1 and S2. No gallops, murmurs, or rubs. Normal PMI, no JVD. No pulse deficits. Respiratory: Lungs have equal breath sounds bilaterally, clear to auscultation and percussion. No rales, rhonchi or wheezes noted. No increased work of breathing, no retractions or nasal flaring. Abdomen/GI: Soft, non-tender, with normal bowel sounds. No distension or tympany. No guarding or rebound. No evidence of tenderness throughout. Back: No spinal tenderness. No costovertebral tenderness. Full range of motion. Skin: Warm, dry with normal turgor. Normal color with no rashes, no lesions, and no evidence of cellulitis. MS/ Extremity: Pulses equal, no cyanosis. Neurovascular intact. Full, normal range of motion. Neuro: Awake and alert, GCS 15, oriented to person, place, time, and situation. Cranial nerves II-XII grossly intact. Motor strength 5/5 in all extremities. Sensory grossly intact. Cerebellar exam normal. Normal gait. Psych: Awake, alert, with orientation to person, place and time. Behavior, mood, and affect are within normal limits. 09:59 ENT: Pain reproducible with percussion to frontal sinuses.. Vital Signs: 09:17 BP 142 / 78; Pulse 82; Resp 16; Temp 98.1; Pulse Ox 99% on R/A; Weight 90.72 kg; Height iw 5 ft. 1 in. ; 09:17 Body Mass Index 37.79 (90.72 kg, 154.94 cm) iw MDM: 09:02 Patient medically screened. sp3 10:02 Data reviewed: vital signs, nurses notes, lab test result(s). ED course: 53-year-old sp3 female with upper respiratory infection versus sinusitis versus COVID-19 versus influenza versus other viral syndrome. I am not highly suspicious for sepsis, shock, pneumonia, ACS or any other critical pathology. Swabs are negative we will treat with p.o. antibiotics outpatient and follow-up to PCP for sinusitis.. 10/17 09:03 Order name: Strep sp3 10/17 09:03 Order name: SARS RAPID; Complete Time: 10: sp3 10/17 09:03 Order name: Flu; Complete Time: 10: sp3 10/17 10:12 Order name: Throat Culture EDMS Administered Medications: No medications were administered Disposition Summary: 10/18/23 10:14 Discharge Ordered Notes: Location: Home sp3 Condition: Stable sp3 Diagnosis - Other acute sinusitis sp3 Followup: sp3 - With: Private Physician - When: Upon discharge from the Emergency Department - Reason: Continuance of care Discharge Instructions: - Discharge Summary Sheet sp3 - Sinusitis, Adult sp3 Forms: - Work release form iw - Medication Reconciliation Form sp3 - Antibiotic Education sp3 - Prescription Opioid Use sp3 - Patient Portal Instructions sp3 - Leadership Thank You Letter sp3 Prescriptions: - levofloxacin 500 mg Oral tablet - take 1 tablet ORAL route once daily for 7 days; 7 tablet; Refills: 0, Product sp3 Selection Permitted Signatures: Dispatcher [employer] Estela nSowden, DULCE RN iw Lester Adorno MD MD sp3
--- NOTE | 2023-10-18 10:15 | ER ---
Nurse's Notes [facility] Name: Kerry Brush Age: 53 yrs Sex: Female : 1970 Arrival Date: 10/18/2023 Time: 08:52 Bed 12 Private MD: Diagnosis: Other acute sinusitis Presentation: 10/17 09:17 Chief complaint: Patient states: cough, sore throat, runny nose since the . iw Coronavirus screen: Client presents with at least one sign or symptom that may indicate coronavirus-19. Ebola Screen: No symptoms or risks identified at this time. Initial Sepsis Screen: Does the patient meet any 2 criteria? No. Patient's initial sepsis screen is negative. Does the patient have a suspected source of infection? No. Patient's initial sepsis screen is negative. Risk Assessment: Do you want to hurt yourself or someone else? Patient reports no desire to harm self or others. Onset of symptoms was October 07, 2023. 09:17 Method Of Arrival: Ambulatory 09:17 Acuity: JAVON 4 iw Historical: - Allergies: 09:21 No Known Allergies; iw - PMHx: 09:21 epitaxis; iw - PSHx: 09:21 Cholecystectomy; Ligation of fallopian tube; iw - Immunization history:: Adult Immunizations. - Infectious Disease History:: Denies. - Social history:: Smoking status: . Screenin:34 [facility] ED Fall Risk Assessment (Adult) History of falling in the last 3 months, iw including since admission No falls in past 3 months (0 pts) Confusion or Disorientation No (0 pts) Intoxicated or Sedated No (0 pts) Impaired Gait No (0 pts) Mobility Assist Device Used No (0 pt) Altered Elimination No (0 pt) Score/Fall Risk Level 0 - 2 = Low Risk Oriented to surroundings, Maintained a safe environment. Abuse screen: Denies threats or abuse. Nutritional screening: No deficits noted. Tuberculosis screening: No symptoms or risk factors identified. Assessment: 09:33 General: Appears in no apparent distress. Behavior is calm, cooperative. Pain: iw Complains of pain in head,throat. Neuro: Level of Consciousness is awake, alert, obeys commands, Oriented to person, place, time, situation, Moves all extremities. Full function. Cardiovascular: Patient's skin is warm and dry. Respiratory: Respiratory effort is even, unlabored, Respiratory pattern is regular. Respiratory: Reports cough that is non-productive. Derm: Skin is intact, is healthy with good turgor. Musculoskeletal: Range of motion: intact in all extremities. Vital Signs: 09:17 BP 142 / 78; Pulse 82; Resp 16; Temp 98.1; Pulse Ox 99% on R/A; Weight 90.72 kg; Height iw 5 ft. 1 in. ; 09:17 Body Mass Index 37.79 (90.72 kg, 154.94 cm) iw ED Course: 08:58 Patient arrived in ED. mg5 09:02 Lester Adorno MD is Attending Physician. sp3 09:18 Triage completed. iw 09:21 Estela Cerna RN is Primary Nurse. iw 09:33 Arm band placed on. iw 09:34 Patient has correct armband on for positive identification. Provided Education on: swab iw wait time . 09:34 No provider procedures requiring assistance completed. Patient admitted, IV remains in iw place. Administered Medications: No medications were administered Medication: 09:33 VIS not applicable for this client. iw Outcome: 10:14 Discharge ordered by . sp3 10:30 Patient left the ED. iw Signatures: Estela Cerna RN RN iw Lester Adorno MD MD sp3 Martha Shanks mg5 Corrections: (The following items were deleted from the chart) 10:18 09:17 BP 142 / 78; Pulse 82bpm; Resp 16bpm; Pulse Ox 99% RA; 90.72 kg; Height 5 ft. 1 iw in.; BMI: 37.7; iw
[2023-10-18 10:35] VITALS: BP 142/78; TEMP 98.1; O2SAT 99
== END 2023-10-18 10:30 | disposition home or self-care (01) ==
LOC: ER 08:52
DX: J01.80 Other acute sinusitis (principal); Z11.52 Encounter for screening for COVID-19
CPT/HCPCS: 36415; 87070; 87081; 87804; 87811; 99281